=== PATIENT | male | born 1960 | race Two or more races ===

== ENCOUNTER 2022-08-05 20:34 | Inpatient (IN) ==
--- NOTE | 2022-08-05 21:31 | Emergency Department Note ---
Impression & Plan Nephrolithiasis, Back pain ED Provider Note CHIEF COMPLAINT: Low back pain HISTORY OF PRESENT ILLNESS: This 62-year-old male patient presents to the emergency department with his complaining of pain in the low back mostly on the left side into his groin which began yesterday. The patient states that he has been working in the yard a lot recently and now has "severe" low back pain. The pain was gradual in onset, is now constant and worse with movement. He states that he gets severe sharp episodes of pain and then it lets up slightly and then come back again. Has also been feeling like he has to have a BM, but can't go. Last BM was this morning. The patient notes the pain as sharp and a 10/10. He has a history of kidney stones, but this feels different. The patient has taken Tylenol without relief of the pain. The patient denies any loss of control of their bowel or bladder functions. No radiation of the pain into his legs. There has been no leg numbness or weakness, and no change in sensation. No nausea or vomiting or abdominal pain. No chest pain or shortness of breath. The patient has a history of L4/L5 surgery many years ago. No dysuria or increased urinary frequency. Walking helps a little with the pain, but not much. REVIEW OF SYSTEMS: A review of systems was performed with positives and pertinent negatives listed in the history of present illness. ALLERGIES: Morphine - vomiting MEDICATIONS: None PMH: Denies chronic medical problems. History of back surgery. History of partial colon resection. PHYSICAL EXAM: VITALS: Vitals are noted on the nurse's note and reviewed by myself. GENERAL: The patient is pacing and appears in pain, but non toxic in appearance and in no acute distress. Non-diaphoretic. EYES: Pupils equal round and reactive to light and accommodation. The Extraocular movements intact. NECK: Supple without nuchal rigidity. No cervical spine tenderness. No paraspinous muscle tenderness. No lymphadenopathy. HEART: Regular rate and rhythm without murmurs gallops or rubs. LUNGS: Clear to auscultation bilaterally without wheezes, rales or rhonchi. ABDOMEN: Positive bowel sounds x 4. Normal tympanic percussion. Soft, left flank tenderness, without masses or organomegaly. No CVA tenderness. Asif sign negative. MUSCULOSKELETAL: No muscle atrophy, erythema, or edema noted of the back. There is tenderness over the lumbar spinous processes. There is also tenderness over the paraspinous muscles on the left side. There is no tenderness over the thoracic spine or paraspinous muscles. There are no muscle spasms present. Negative straight leg raise test. NEURO: Patient was alert and oriented to person place and time. Normal sensation to light and sharp touch. Deep tendon reflexes 2+ in the lower extremities. Dorsalis pedis pulse 2+ bilaterally. Heel and toe walking is normal. DIFFERENTIAL DIAGNOSIS: Differential diagnosis includes lumbar strain/sprain, muscle spasm, disc herniation, fracture, subluxation, metastatic disease, cord compression, discitis, sciatica, cauda equina, conus medullaris syndrome, infection, epidural abscess, epidural hematoma, aortic disease, renal colic, kidney stone, UTI, pyelonephritis, gastrointestinal, as well as other pathologies. EMERGENCY DEPARTMENT COURSE: I examined the patient. He was given Toradol 15 mg IM initially for the pain. His urinalysis came back with 3+ blood, but no evidence for infection and additional work-up was initiated as the patient was now pacing around the room appearing like he may have a kidney stone. An IV lock was placed and labs were drawn. He was given 1 L normal saline solution bolus. He was then given fentanyl 100 mcg IV as well as Zofran 4 mg IV. White blood cell count elevated at 14.07 with normal hemoglobin at 14.6. Glucose elevated at 127, but CMP otherwise unremarkable. Urinalysis with 3+ blood, but no evidence for UTI. COVID-negative. CT scan of the lumbar spine was reviewed by myself and read by radiology as below and shows multilevel degenerative change in the lower lumbar spine as well as postsurgical change. No evidence for canal stenosis. CT scan of the abdomen pelvis without contrast was reviewed by myself and read by radiology as below and shows a 7 mm distal ureteral calculus at the left UVJ with mild to moderate left-sided hydroureteronephrosis. There are also additional bilateral intrarenal calculi as well as a 6.87 m simple left renal cyst. The patient was then given oral Flomax as well as an additional fentanyl 50 mcg IV followed by fentanyl 100 mcg IV for continued pain. The patient did have mild hypoxia down to about 87 to 88% right after pain medication administration, but does improve quickly with O2 by nasal cannula and resolved shortly after the pain medication is given. The patient does not feel like he can go home with the pain that he is currently experiencing. I spoke with the on-call hospitalist, Dr. Andres, who recommended I contact urology since the patient has no past medical history and is not currently on any medications. I spoke with Dr. Espinal of urology who stated that they do not admit to their service. He recommended the patient receive Rocephin IV and that they can consult on the patient while he was admitted. I spoke with Dr. Andres again regarding the recommendations from urology. The patient was admitted by Dr. Andres. Please refer to her dictation for further details. The patient was admitted in stable condition. DIAGNOSIS: 7 mm left distal ureteral calculus at the UVJ with mild to moderate left-sided hydroureteronephrosis Past Med/Surg History Medical History (Updated 08/06/22 @ 07:33 by Coreen Schreiber PA-C) Nephrolithiasis Surgical History (Updated 08/06/22 @ 03:08 by Valentina Jerez DO) Previous back surgery Family History (Updated 08/06/22 @ 02:59 by Valentina Jerez DO) Other No pertinent family history Social History Smoking Status: Never smoker Second Hand Exposure: No; Do You Dip or Chew Tobacco: No; Tobacco Cessation Education Requested by Patient: No Hx Alcohol Use: No Hx Substance Use: No Preferred Language: Angolan Communication Ability: Effective Aircre[employer] Required: No Beliefs That Will Affect Care: None Current Living Situation: Spouse Other Information That Helps Us Care for You: No Feels Safe at Home: Yes Safety Concerns: Feels Safe At This Time Assistive Devices: Denture - Upper Allergies Allergies Allergy/AdvReac Type Severity Reaction Status Date / Time morphine AdvReac Vomiting Verified 08/05/22 23:40 Home Meds Home Medications Medication Instructions Recorded Confirmed acetaminophen 500 mg tablet 1,000 mg PO Q6H PRN Pain 08/05/22 08/05/22 (Tylenol Extra Strength) loratadine 10 mg tablet (Claritin) 10 mg PO DAILY PRN allergies 08/05/22 08/05/22 tetrahydrozoline 0.05 % eye drops 1 drp ophthalmic (eye) QID PRN Dry 08/05/22 08/05/22 (Visine) Eyes Results & Data (ED) Vital Signs Vital Signs - 24 hr 08/05/22 20:35 Temperature 36.6 C Temperature Source Temporal Artery Scan Pulse Rate 77 Pulse Rhythm Regular Pulse Strength Normal Respiratory Rate 20 Respiratory Effort / Characteristics Non-Labored Spontaneous Respiratory Depth Normal Respiratory Pattern Regular Blood Pressure 171/89 H Blood Pressure Mean 116 Blood Pressure Position Sitting Pulse Oximetry 93 Oxygen Delivery Method Room Air Sepsis Recent Fever Within 48 Hours No Sepsis New/Unexplained Change in Mental Status N/A Sepsis Action Taken by Nursing No Action Required Laboratory Data 08/05/22 22:34 08/05/22 22:34 Lab Results 08/05/22 08/05/22 08/05/22 Range/Units 21:50 22:34 22:34 WBC 14.07 H (4.8-10.8) K/ul RBC 5.09 (4.70-6.10) M/uL Hgb 14.6 (14.0-18.0) g/dl Hct 42.7 (42.0-52.0) % MCV 83.9 (80.0-100.0) fL MCH 28.7 (25.0-34.0) pg MCHC 34.2 (32.0-36.0) g/dL RDW Std Deviation 40.9 (36.4-46.3) fL RDW Coeff of Kb 13.2 (11.5-14.5) % Plt Count 207 (130-400) K/uL MPV 11.2 (9.4-12.4) fL Immature Gran % (Auto) 0.4 % Neut % (Auto) 84.3 % Lymph % (Auto) 8.2 % [place] % (Auto) 5.7 % Eos % (Auto) 1.1 % Baso % (Auto) 0.3 % Neut # (Auto) 11.88 H (1.40-6.50) K/uL Lymph # (Auto) 1.15 L (1.2-3.4) K/uL [place] # (Auto) 0.80 H (0.11-0.59) K/uL Eos # (Auto) 0.15 (0-0.50) K/uL Baso # (Auto) 0.04 (0-0.2) K/uL Immature Gran # (Auto) 0.05 (0.01-0.20) K/uL Sodium 140 (136-145) mmol/L Potassium 3.9 (3.5-5.1) mmol/L Chloride 108 H (98-107) mmol/L Carbon Dioxide 25 (21-32) mmol/L Anion Gap 7 (3-11) BUN 18 (6-23) mg/dl Creatinine 1.28 (0.6-1.4) mg/dl Est Cr Clr Drug Dosing 81.4 ml/min Est GFR ( Amer) 68.1 ml/min Est GFR (Non-Af Amer) 58.8 ml/min BUN/Creatinine Ratio 14.1 (10-20) Glucose 127 H (70-99(Fasting)) mg/dl Calcium 9.0 (8.6-10.3) mg/dl Total Bilirubin 0.7 (0.2-1.0) mg/dl AST 26 (13-39) U/L ALT 28 (7-52) U/L Alkaline Phosphatase 79 (34-104) U/L Total Protein 7.4 (6.0-8.3) gm/dl Albumin 4.1 (3.4-5.0) gm/dl Globulin 3.3 (2.5-4.0) gm/dl Albumin/Globulin Ratio 1.2 (0.9-2) Urine Color Yellow Urine Appearance Clear (Clear) Urine pH 5.0 (4.5-7.5) Ur Specific [place] 1.020 (1.000-1.030) Urine Protein Negative (Negative) Urine Glucose (UA) Negative (Negative) Urine Ketones Negative (Negative) Urine Blood 3+ H (Negative) Urine Nitrite Negative (Negative) Urine Bilirubin Negative (Negative) Urine Urobilinogen Negative (Negative) Ur Leukocyte Esterase Negative (Negative) Urine WBC (Auto) 1-5 (0-5) /hpf Urine RBC (Auto) 5-10 H (0-4) /hpf U Hyaline Cast (Auto) 1-5 (0-5) /lpf U Epithel Cells (Auto) 10-20 H (0-5) /lpf Urine Bacteria (Auto) Negative (Negative) SARS-CoV-2, RNA, NAAT (NEGATIVE) 08/06/22 Range/Units 01:04 WBC (4.8-10.8) K/ul RBC (4.70-6.10) M/uL Hgb (14.0-18.0) g/dl Hct (42.0-52.0) % MCV (80.0-100.0) fL MCH (25.0-34.0) pg MCHC (32.0-36.0) g/dL RDW Std Deviation (36.4-46.3) fL RDW Coeff of Kb (11.5-14.5) % Plt Count (130-400) K/uL MPV (9.4-12.4) fL Immature Gran % (Auto) % Neut % (Auto) % Lymph % (Auto) % [place] % (Auto) % Eos % (Auto) % Baso % (Auto) % Neut # (Auto) (1.40-6.50) K/uL Lymph # (Auto) (1.2-3.4) K/uL [place] # (Auto) (0.11-0.59) K/uL Eos # (Auto) (0-0.50) K/uL Baso # (Auto) (0-0.2) K/uL Immature Gran # (Auto) (0.01-0.20) K/uL Sodium (136-145) mmol/L Potassium (3.5-5.1) mmol/L Chloride (98-107) mmol/L Carbon Dioxide (21-32) mmol/L Anion Gap (3-11) BUN (6-23) mg/dl Creatinine (0.6-1.4) mg/dl Est Cr Clr Drug Dosing ml/min Est GFR ( Amer) ml/min Est GFR (Non-Af Amer) ml/min BUN/Creatinine Ratio (10-20) Glucose (70-99(Fasting)) mg/dl Calcium (8.6-10.3) mg/dl Total Bilirubin (0.2-1.0) mg/dl AST (13-39) U/L ALT (7-52) U/L Alkaline Phosphatase (34-104) U/L Total Protein (6.0-8.3) gm/dl Albumin (3.4-5.0) gm/dl Globulin (2.5-4.0) gm/dl Albumin/Globulin Ratio (0.9-2) Urine Color Urine Appearance (Clear) Urine pH (4.5-7.5) Ur Specific [place] (1.000-1.030) Urine Protein (Negative) Urine Glucose (UA) (Negative) Urine Ketones (Negative) Urine Blood (Negative) Urine Nitrite (Negative) Urine Bilirubin (Negative) Urine Urobilinogen (Negative) Ur Leukocyte Esterase (Negative) Urine WBC (Auto) (0-5) /hpf Urine RBC (Auto) (0-4) /hpf U Hyaline Cast (Auto) (0-5) /lpf U Epithel Cells (Auto) (0-5) /lpf Urine Bacteria (Auto) (Negative) SARS-CoV-2, RNA, NAAT NEGATIVE (NEGATIVE) Administered Medications Sodium Chloride (Nss 1000ml) 1,000 mls @ 125 mls/hr IV .Q8H MUNA Stop: 09/05/22 04:18 Last Admin: 08/06/22 04:54 Dose: 125 mls/hr Documented By: TOMER Acetaminophen (Ofirmev) 1,000 mg in 100 mls @ 400 mls/hr IV Q8 MUNA Stop: 08/09/22 04:44 Last Infusion: 08/06/22 05:35 Dose: 0 mls/hr Documented By: Admin: 08/06/22 05:20 Dose: 400 mls/hr Documented By: TARUN Discontinued Medications Fentanyl Citrate (Fentanyl Citrate Pf 100 Mcg/2 Ml Vial) 100 mcg IV NOW STA Stop: 08/05/22 23:36 Last Admin: 08/05/22 23:45 Dose: 100 mcg Documented By: KATERIN Fentanyl Citrate (Fentanyl Citrate Pf 100 Mcg/2 Ml Vial) 50 mcg IV NOW STA Stop: 08/06/22 00:36 Last Admin: 08/06/22 00:50 Dose: 50 mcg Documented By: KATERIN Fentanyl Citrate (Fentanyl Citrate Pf 100 Mcg/2 Ml Vial) 100 mcg IV NOW STA Stop: 08/06/22 01:33 Last Admin: 08/06/22 01:53 Dose: 100 mcg Documented By: KATERIN Hydromorphone HCl (Hydromorphone Inj 1 Mg/Ml Syringe) 1 mg IV NOW STA Stop: 08/06/22 02:58 Last Admin: 08/06/22 03:18 Dose: 1 mg Documented By: KRISTINA Sodium Chloride (Nss 1000ml) 1,000 mls @ 999 mls/hr IV .Q1H1M ONE Stop: 08/05/22 23:25 Last Infusion: 08/05/22 23:30 Dose: 0 mls/hr Documented By: Admin: 08/05/22 22:35 Dose: 999 mls/hr Documented By: KATERIN Ceftriaxone Sodium (Rocephin) 2,000 mg in 70 mls @ 140 mls/hr IV NOW STA Stop: 08/06/22 02:41 Last Infusion: 08/06/22 03:17 Dose: 0 mls/hr Documented By: Admin: 08/06/22 02:43 Dose: 140 mls/hr Documented By: KATERIN Ketorolac Tromethamine (Ketorolac Tromethamine 15 Mg/Ml Vial) 15 mg IM NOW STA Stop: 08/05/22 21:40 Last Admin: 08/05/22 21:52 Dose: 15 mg Documented By: KATERIN Ketorolac Tromethamine (Ketorolac Tromethamine 15 Mg/Ml Vial) 15 mg IV NOW STA Stop: 08/06/22 02:59 Last Admin: 08/06/22 03:18 Dose: 15 mg Documented By: KRISTINA Ondansetron HCl (Ondansetron Inj 2 Mg/Ml 2 Ml Vial) 4 mg IV NOW STA Stop: 08/05/22 23:53 Last Admin: 08/06/22 00:17 Dose: 4 mg Documented By: KATERIN Tamsulosin HCl (Tamsulosin Hcl 0.4 Mg Cap) 0.4 mg PO NOW ONE Stop: 08/05/22 23:37 Last Admin: 08/05/22 23:46 Dose: 0.4 mg Documented By: KATERIN Imaging Data Radiologist's Impression: Abdomen/Pelvis CT 08/05/22 21:39 Exam(s): CT ABDOMEN + PELVIS Without Contrast EXAM: CT Abdomen and Pelvis Without Intravenous Contrast CLINICAL HISTORY: Reason for exam: Left flank pain - Eval stone. TECHNIQUE: Axial computed tomography images of the abdomen and pelvis without intravenous contrast. CTDI is 21 mGy and DLP is 1167.65 mGy-cm. Automated exposure control was utilized for the study. A dose lowering technique was utilized adhering to the principles of ALARA. COMPARISON: No relevant prior studies available. FINDINGS: Lung bases: Unremarkable. No mass. No consolidation. ABDOMEN: Liver: Unremarkable. Gallbladder and bile ducts: There is cholelithiasis within an otherwise normal gallbladder. No ductal dilation. Pancreas: Unremarkable. No ductal dilation. Spleen: Unremarkable. No splenomegaly. Adrenals: Unremarkable. No mass. Kidneys and ureters: There is mild to moderate left hydroureteronephrosis extending to a 7 mm distal ureteral calculus (image 85 series 2). There are additional bilateral intrarenal calculi. There is a 6.8 cm simple left renal cyst. Stomach and bowel: Left lower quadrant colonic anastomosis. No obstruction. No mucosal thickening. PELVIS: Appendix: No findings to suggest acute appendicitis. Bladder: Unremarkable. No stones. Reproductive: Unremarkable as visualized. ABDOMEN and PELVIS: Intraperitoneal space: Unremarkable. No free air. No significant fluid collection. Bones/joints: Surgical hardware in the lower lumbar spine. To level degenerative changes of the spine. No acute fracture. No dislocation. Soft tissues: Unremarkable. Vasculature: There is diffuse atherosclerotic calcification of the aorta and its major branch vessels. No abdominal aortic aneurysm. Lymph nodes: Unremarkable. No enlarged lymph nodes. IMPRESSION: Mild to moderate left-sided hydroureteronephrosis related to a large calculus at the left UVJ. Electronically signed by: Aram Pryro MD 08/05/22 23:[address] 08/05/22 21:39 Exam(s): CT L SPINE EXAM: CT Lumbar Spine Without Intravenous Contrast CLINICAL HISTORY: Reason for exam: Low back pain. TECHNIQUE: Axial computed tomography images of the lumbar spine without intravenous contrast. CTDI is 21 mGy and DLP is 1167.65 mGy-cm. Automated exposure control was utilized for the study. A dose lowering technique was utilized adhering to the principles of ALARA. COMPARISON: No relevant prior studies available. FINDINGS: Vertebrae: There is slight retrolisthesis of L4 and L5. Discs/spinal canal/neural foramina: Status post posterior fusion and laminectomy at L5-S1. There are mild multilevel degenerative changes including small disc bulges. No significant canal stenosis. Soft tissues: Please see the dedicated interpretation of the abdomen and pelvis.. IMPRESSION: Multilevel degenerative change in lower lumbar is postsurgical change. No evidence for canal stenosis. If concern persists, MRI would provide more sensitive evaluation. Electronically signed by: Aram Pryor MD 08/05/22 23:13 PM Discharge Plan Visit Data Chief Complaint: Back Injury/Pain Stated Complaint: BACK PAIN ED Provider: Marta Curtis ED Midlevel Provider: Coreen Schreiber Discharge Problem: Nephrolithiasis, Back pain Patient Disposition: Admitted As Inpatient Condition: Good Discharge Instructions Interventions: ED Discharge Assessment Last Done: 08/06/22 03:58
[2022-08-05] MEDS ORDERED: KETOROLAC TROMETHAMINE 15 MG/ML VIAL IM STA (21:39)
[2022-08-05 22:15] LABS: Appearance Urine Clear (Clear); Bacteria Urine Automated Negative (Negative); Bilirubin Urine Negative (Negative); Blood Urine 3+ (Negative); Color Urine Yellow; Glucose Urine UA Negative (Negative); Ketones Urine Negative (Negative); Leukocyte Esterase Urine Negative (Negative); Nitrite Urine Negative (Negative); Protein Urine Negative (Negative); Urobilinogen Urine Negative (Negative)
[2022-08-05] MEDS ORDERED: SODIUM CHLORIDE 0.9% 1000ML 1,000 ML IV ONE (22:25)
[2022-08-05 22:49] LABS: Basophils # (auto) 0.04 K/uL (0-0.2); Basophils % (auto) 0.3 %; Eosinophils # (auto) 0.15 K/uL (0-0.50); Eosinophils % (auto) 1.1 %; Hematocrit (blood only) 42.7 % (42.0-52.0); Hemoglobin 14.6 g/dl (14.0-18.0); Immature Granulocytes # (auto) 0.05 K/uL (0.01-0.20); Immature Granulocytes % (auto) 0.4 %; Lymphocytes # (auto) 1.15 K/uL (1.2-3.4); Lymphocytes % (auto) 8.2 %; Mean Corpuscular Hemoglobin 28.7 pg (25.0-34.0); Mean Corpuscular Hgb Conc 34.2 g/dL (32.0-36.0); Mean Corpuscular Volume 83.9 fL (80.0-100.0); Mean Platelet Volume 11.2 fL (9.4-12.4); Monocytes % (auto) 5.7 %; Neutrophils # (auto) 11.88 K/uL (1.40-6.50); Neutrophils % (auto) 84.3 %; Platelet Count 207 K/uL (130-400); RDW Coefficient of Variation 13.2 % (11.5-14.5); RDW Standard Deviation 40.9 fL (36.4-46.3); Red Blood Count 5.09 M/uL (4.70-6.10); White Blood Count 14.07 K/ul (4.8-10.8)
[2022-08-05 23:09] LABS: Albumin Globulin Ratio 1.2 (0.9-2); Albumin Level 4.1 gm/dl (3.4-5.0); BUN Creatinine Ratio 14.1 (10-20); Bilirubin,Total 0.7 mg/dl (0.2-1.0); Creatinine Clr Calc Pharmacy 81.4 ml/min; Est GFR (African American) 68.1 ml/min; Est GFR (Non-African American) 58.8 ml/min; Globulin 3.3 gm/dl (2.5-4.0); Potassium 3.9 mmol/L (3.5-5.1); Total Protein 7.4 gm/dl (6.0-8.3)
--- NOTE | 2022-08-05 23:12 | CT Scan Report ---
Exam(s): CT ABDOMEN + PELVIS Without Contrast EXAM: CT Abdomen and Pelvis Without Intravenous Contrast CLINICAL HISTORY: Reason for exam: Left flank pain - Eval stone. TECHNIQUE: Axial computed tomography images of the abdomen and pelvis without intravenous contrast. CTDI is 21 mGy and DLP is 1167.65 mGy-cm. Automated exposure control was utilized for the study. A dose lowering technique was utilized adhering to the principles of ALARA. COMPARISON: No relevant prior studies available. FINDINGS: Lung bases: Unremarkable. No mass. No consolidation. ABDOMEN: Liver: Unremarkable. Gallbladder and bile ducts: There is cholelithiasis within an otherwise normal gallbladder. No ductal dilation. Pancreas: Unremarkable. No ductal dilation. Spleen: Unremarkable. No splenomegaly. Adrenals: Unremarkable. No mass. Kidneys and ureters: There is mild to moderate left hydroureteronephrosis extending to a 7 mm distal ureteral calculus (image 85 series 2). There are additional bilateral intrarenal calculi. There is a 6.8 cm simple left renal cyst. Stomach and bowel: Left lower quadrant colonic anastomosis. No obstruction. No mucosal thickening. PELVIS: Appendix: No findings to suggest acute appendicitis. Bladder: Unremarkable. No stones. Reproductive: Unremarkable as visualized. ABDOMEN and PELVIS: Intraperitoneal space: Unremarkable. No free air. No significant fluid collection. Bones/joints: Surgical hardware in the lower lumbar spine. To level degenerative changes of the spine. No acute fracture. No dislocation. Soft tissues: Unremarkable. Vasculature: There is diffuse atherosclerotic calcification of the aorta and its major branch vessels. No abdominal aortic aneurysm. Lymph nodes: Unremarkable. No enlarged lymph nodes. IMPRESSION: Mild to moderate left-sided hydroureteronephrosis related to a large calculus at the left UVJ. Electronically signed by: Aram Pryor MD 08/05/22 23:11 PM
--- NOTE | 2022-08-05 23:14 | CT Scan Report ---
Exam(s): CT L SPINE EXAM: CT Lumbar Spine Without Intravenous Contrast CLINICAL HISTORY: Reason for exam: Low back pain. TECHNIQUE: Axial computed tomography images of the lumbar spine without intravenous contrast. CTDI is 21 mGy and DLP is 1167.65 mGy-cm. Automated exposure control was utilized for the study. A dose lowering technique was utilized adhering to the principles of ALARA. COMPARISON: No relevant prior studies available. FINDINGS: Vertebrae: There is slight retrolisthesis of L4 and L5. Discs/spinal canal/neural foramina: Status post posterior fusion and laminectomy at L5-S1. There are mild multilevel degenerative changes including small disc bulges. No significant canal stenosis. Soft tissues: Please see the dedicated interpretation of the abdomen and pelvis.. IMPRESSION: Multilevel degenerative change in lower lumbar is postsurgical change. No evidence for canal stenosis. If concern persists, MRI would provide more sensitive evaluation. Electronically signed by: Aram Pryor MD 08/05/22 23:13 PM
[2022-08-05] MEDS ORDERED: fentaNYL citrate PF 100 MCG/2 ML VIAL IV STA (23:35)
[2022-08-05] MEDS ORDERED: TAMSULOSIN HCL 0.4 MG CAP PO ONE (23:36)
[2022-08-05] MEDS ORDERED: ONDANSETRON INJ 2 MG/ML 2 ML VIAL IV STA (23:52)
[2022-08-06] MEDS ORDERED: fentaNYL citrate PF 100 MCG/2 ML VIAL IV STA ×2 (00:35→01:32)
[2022-08-06] MEDS ORDERED: cefTRIAXone SODIUM 2,000 MG/70 ML BAG IV STA (02:12)
--- NOTE | 2022-08-06 02:48 | History & Physical Report ---
Date of Service August 06, 2022 Assessment & Plan (1) Nephrolithiasis: Plan: History of nephrolithiasis With worsening back pain over the last 24 hours CTAP with mild to moderate left-sided hydroureteronephrosis related to a large 7mm calculus at the left UVJ Case discussed with Urology by ER provider; to see patient later this AM Recommended ceftriaxone at this time for possible infected stone Dilaudid 1mg q2h prn severe pain; scheduled ketorolac and Tylenol IV, warm compresses as patient desires Continue tamsulosin, strain urine NPO except tamsulosin with IVF until evaluated by Urology (2) Leukocytosis: Plan: WBC count 14 with left shift, UA without bacteria however given obstructing stone continue ceftriaxone 2g daily for now until formal UCx results Daily CBC while admitted (3) Previous back surgery: Plan: Patient with a history of back surgery, however do suspect his pain is due to his UVJ stone as opposed to any lumbar pathology. CT of the L-spine with degenerative and postsurgical changes, but no acute findings. No bowel or bladder incontinence History of Present Illness Chief Complaint: back pain Primary Care Provider: NO PCP 62-year-old male past medical history significant for nephrolithiasis presented to the ER for worsening low back pain isolated more so to the left side over the last 24 hours. At first thought that the pain might be musculoskeletal due to a history of back surgery (L4/5 surgery many years ago). Does not endorse dysuria or increased urinary frequency, no bowel or bladder incontinence has been trying to take Tylenol at home without relief. Reports some nausea when he has to move, but no nausea when he is staying still. Quantifies pain as a 10 out of 10, alleviated some with walking. In the ER patient noted to be hemodynamically stable with a blood pressure in the 170s systolic, saturating well on room air. Lab work notable for WBC count of 14.07 with a neutrophilic predominance, creatinine 1.28 without baseline to compare, urinalysis with 3+ blood but negative for bacteria, COVID-[address] abdomen and pelvis with evidence of mild to moderate hydroureteronephrosis secondary to large UVJ stone. CT of lumbar spine with multilevel degenerative disease and postsurgical changes, but no evidence of canal stenosis. Hospitalist service was consulted for evaluation and management of his obstructive stone with urology consult. Allergies Allergy/AdvReac Type Severity Reaction Status Date / Time morphine AdvReac Vomiting Verified 08/05/22 23:40 Home Medications Medication Instructions Recorded Confirmed Type acetaminophen 500 mg tablet 1,000 mg PO Q6H PRN Pain 08/05/22 08/05/22 History (Tylenol Extra Strength) loratadine 10 mg tablet (Claritin) 10 mg PO DAILY PRN allergies 08/05/22 08/05/22 History tetrahydrozoline 0.05 % eye drops 1 drp ophthalmic (eye) QID PRN Dry 08/05/22 08/05/22 History (Visine) Eyes Past Med/Surg History Medical History (Updated 08/06/22 @ 02:58 by Valentina Jerez DO) Nephrolithiasis Surgical History (Updated 08/06/22 @ 03:08 by Valentina Jerez DO) Previous back surgery Family History (Updated 08/06/22 @ 02:59 by Valentina Jerez DO) Other No pertinent family history Social History Smoking Status: Never smoker Preferred Language: Occitan Feels Safe at Home: Yes Review of Systems Review of Systems: All systems reviewed & are unremarkable except as noted in Subjective Physical Exam Constitutional: well developed, obese, in pain Respiratory: normal respiratory effort, lungs clear to auscultation Cardiovascular: RRR, no murmur, no edema Gastrointestinal (Abdomen): normal bowel sounds, soft, nontender, no hepatosplenomegaly left low back very tender to palpation Skin: no rashes, warm and dry Psychiatric: alert and oriented Results & Data Results & Data Vital Signs (Past 12 Hours) Vital Signs Temp Pulse Resp BP Pulse Ox O2 Del Method 08/05/22 20:35 36.6 C 77 20 171/89 H 93 Room Air PG Care Time/CCT Total # of Minutes Spent Total Time Spent with Patient: Total time spent is greater than 50% in coordination of care (as documented) at patient's floor/unit and/or counseling patient: Coding Level of Care Code 73659 INT INP/OBS CARE 3/75MIN Diagnoses Nephrolithiasis N20.0 Leukocytosis D72.829 Previous back surgery Z98.890
[2022-08-06] MEDS ORDERED: HYDROmorphone INJ 1 MG/ML SYRINGE IV STA (02:57)
[2022-08-06] MEDS ORDERED: KETOROLAC TROMETHAMINE 15 MG/ML VIAL IV STA (02:58)
[2022-08-06] MEDS ORDERED: HYDROmorphone INJ 1 MG/ML SYRINGE IV PRN (04:19)
[2022-08-06] MEDS: SODIUM CHLORIDE 0.9% 1000ML 1,000 ML IV SCH ×3 (04:54→20:55)
[2022-08-06] MEDS: ACETAMINOPHEN 1,000 MG/100 ML VIAL IV SCH ×3 (05:20→21:41)
--- NOTE | 2022-08-06 07:00 | Hospitalist Progress Note ---
Date of Service August 06, 2022 Assessment & Plan (1) Nephrolithiasis: Plan: 62-year-old male with past medical history of right-sided kidney stone that required cystoscopy removal over 15 years ago who presents with 24 hours of intractable left groin and left low back pain. - CT abdomen/pelvis with mild to moderate left-sided hydroureteronephrosis related to a large 7mm calculus at the left UVJ. - Urology recommends conservative management - Continue Rocephin 2 g IV every 24 for now while awaiting stone passage - UA was negative, culture was not sent - Continue daily tamsulosin, strain urine - Pain control with scheduled Tylenol 1000 mg IV every 8 hours. Reduced prn Dilaudid to 0.5 mg q2h - NSS 125 mL/hr (2) Elevated serum creatinine: Plan: - Creatinine 1.28, baseline unknown. Discontinued Toradol. Avoid nsaids. Follow BMP. (3) Previous back surgery: Plan: - History of L4/L5 back surgery many years ago. CT of the L-spine with degenerative and postsurgical changes, but no acute findings. No bowel or bladder incontinence. (4) Leukocytosis: Plan: Follow CBC. Plan FEN/GI: regular diet. NPO at midnight. NSS 125mL/hr dvt ppx: SCDs only code: full dispo: med surg Admission and Anticipated Discharge Date Admission Date: August 06, 2022 Supervising Physician Co-Signing Physician Notes I also saw the patient and confirmed hernandez portions of the history and physical examination. I agree with the impression and plan as noted in the resident documentation. Upon our midmorning exam, the patient feeling better, pain controlled. EXAM 141/67, 62, 18, 36.7, 96% on room air Respirations are non-labored, lungs are clear Heart regular rate and rhythm DATA Xquoxriosj77.6, WBC 14.07 Sodium 140, potassium 3.9, BUN 18, creatinine 1.28 Urinalysis shows 3+ blood CT scan of the abdomen and pelvis dated 08/05/2022 shows a 7 mm distal ureteral calculus with resulting mild to moderate left-sided hydro utero nephrosis. Note is also made of additional bilateral intra renal calculi. There is also a 6.8 cm simple left renal cyst. IMPRESSION AND PLAN Nephrolithiasis with obstruction Urology consult appreciated Continue pain control, Flomax, IV hydration Ambulate in the hallway ad elliot. Diet as tolerated, will make n.p.o. after midnight in case intervention needed Additional per resident documentation Subjective Patient's current pain level is 2 out of 10, much improved from last night. He states that he has had severe left flank and left groin pain since 2 days ago. He denies fever, chills, gross hematuria. He has had a history of right-sided kidney stones and states he has had cystoscopy stone removal in the past. 11AM update: Pain continues to be minimal/controlled. Last dose of 1mg Dilaudid IV at 3AM. Review of Systems Review of Systems: All systems reviewed & are unremarkable except as noted in HPI & below Physical Exam Physical Exam: General: Grossly A&O. NAD. Cooperative. HEENT: Atraumatic, normocephalic. Pulm: CTAB. -wheezes, -rales, -rhonchi. No respiratory distress. Cardiac: RRR, -mrg. Abdominal: Nontender in all 4 quadrants, nondistended, soft. Back: No left CVA ttp. Results & Data Results & Data Vital Signs (Past 12 Hours) Vital Signs Temp Pulse Pulse Resp BP BP Pulse Ox 08/06/22 04:15 08/06/22 04:15 08/06/22 04:15 36.6 C 62 20 202/100 H 97 08/06/22 04:19 62 16 167/90 H 95 08/06/22 04:00 62 16 165/99 H 95 08/06/22 03:58 08/06/22 03:23 63 18 187/101 H 96 08/05/22 20:35 36.6 C 77 20 171/89 H 93 O2 Del Method O2 Flow Rate 08/06/22 04:15 Nasal Cannula 2 08/06/22 04:15 Nasal Cannula 2 08/06/22 04:15 Nasal Cannula 2 08/06/22 04:19 Nasal Cannula 2 08/06/22 04:00 Room Air 08/06/22 03:58 Nasal Cannula 2 08/06/22 03:23 Nasal Cannula 2 08/05/22 20:35 Room Air Resident Activity Tracking Resident Involvement: Resident Care Provided Care Provided: Adult [facility] Medicine
[2022-08-06] MEDS ORDERED: HYDROmorphone INJ 0.5 MG/0.5 ML SYR IV PRN (07:10)
[2022-08-06] MEDS ORDERED: KETOROLAC TROMETHAMINE 15 MG/ML VIAL IV SCH (07:15)
[2022-08-06] MEDS: TAMSULOSIN HCL 0.4 MG CAP PO SCH (08:31)
--- NOTE | 2022-08-06 09:15 | Urology Consultation ---
Date of Consultation August 06, 2022 Assessment & Plan (1) Nephrolithiasis: (2) Back pain: (3) Leukocytosis: Plan New patient admitted for incomplete pain control. Patient has obstructing stone with significant discomfort and pain. Has attempted to pass. Had undergone IV hydration as well as attempted management with narcotics overnight. Was admitted to the hospitalist team for intractable pain. Patient is not febrile has not had a considerable PANDA or signs of developing s epsis or major severe episode. Pain has not been well controlled. Reviewed extensively obstructing stone. Discussed possibility of passage. Discussed concerns and issues. No signs of severe sepsis PANDA or major injury or other issue that would warrant emergent intervention. Agree with plans for supportive care with IV hydration and pain control medication as needed. Patient is currently started on IV antibiotics for presumed infection. Does have a white count. Labs had all been reviewed. Current white count is 14.07. Creatinine 1.28. COVID test was negative. All imaging have been reviewed interpreted by myself. Does have obstructing stone. Vitals have all been stable with only mild hypertension. Plan for maximum expulsion therapy with the utilization of medication such as Fl omax, Toradol, pain medication, and aggressive hydration. Patient has a 7 mm distal stone which would have a good chance of passage with time and adequate pain control and management. Did discuss possible options for intervention however at this point no major indication for emergent intervention. Very reasonable option to continue with supportive care with plans for elective intervention if patient fails spontaneous passage. Patient complicated medical and surgical history is reviewed and summarized above all imaging have been reviewed interpreted by myself. All labs as above with pertinent values in the HPI and plan section. Patient has already started to feel considerably better. He has noticed a drastic decrease in pain and nausea. Is interested in having some food at this point we will plan for continued supportive care. Patient has a history of stones with 2 in the past that the first 1 had to undergo intervention but was able to pass the second 1. Had previously been seen in [facility]. This had been close to 15 years ago since he has had a stone. We will plan for observation History of Present Illness Attending Physician: lEena Benites MD History of Present Illness New consultation for patient with stone, discomfort, obstruction, and ill feelings. Patient developed sudden onset of pain into flank going down and radiating into groin and back in waves comes and goes. Can be severe at times. Discussed and reviewed patient's family history for any history of stone disease. Also, discussed patient's medical surgery history especially related to any history of urinary issues or stone disease. Patient was admitted and is undergoing observation. Allergies Allergy/AdvReac Type Severity Reaction Status Date / Time morphine AdvReac Vomiting Verified 08/05/22 23:40 Home Medications Medication Instructions Recorded Confirmed Type acetaminophen 500 mg tablet 1,000 mg PO Q6H PRN Pain 08/05/22 08/05/22 History (Tylenol Extra Strength) loratadine 10 mg tablet (Claritin) 10 mg PO DAILY PRN allergies 08/05/22 08/05/22 History tetrahydrozoline 0.05 % eye drops 1 drp ophthalmic (eye) QID PRN Dry 08/05/22 08/05/22 History (Visine) Eyes Patient History Medical History Nephrolithiasis Surgical History Previous back surgery Family History Other No pertinent family history Social History Smoking Status: Never smoker Second Hand Exposure: No; Do You Dip or Chew Tobacco: No; Tobacco Cessation Education Requested by Patient: No Hx Alcohol Use: No Hx Substance Use: No Preferred Language: Mauritanian Communication Ability: Effective 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 Having pain with stone. HEENT: Normocephalic Atraumatic. Inspection normal. Cranial Nerves 2-12 Grossly intact. Nares are clear. Neck is supple. Normal inspection of face. Normal inspection of neck. Neurologic: No deficits on inspection. Baseline for motor function and sensory. Psychologic: Normal affect. Respiratory: Nonlabored. No use of accessory muscles. No tachypnea or dyspnea. Cardiovascular: No tachycardia Skin: [place] and Dry. No rashes or visible lesions. Extremities: Moving without issues. No motor deficits on inspection Lymphatics: No edema Abdomen: Moderately distended. No rebound or guarding. Results & Data Vital Signs (Past 12 Hours) Vital Signs Temp Pulse Resp BP Pulse Ox O2 Del Method O2 Flow Rate 08/06/22 07:43 36.7 C 62 18 141/67 H 96 Room Air 08/06/22 04:15 Nasal Cannula 2 08/06/22 04:15 Nasal Cannula 2 08/06/22 04:15 36.6 C 62 20 202/100 H 97 Nasal Cannula 2 08/06/22 04:19 62 16 167/90 H 95 Nasal Cannula 2 08/06/22 04:00 62 16 165/99 H 95 Room Air 08/06/22 03:58 Nasal Cannula 2 08/06/22 03:23 63 18 187/101 H 96 Nasal Cannula 2 PG Care Time/CCT Total # of Minutes Spent Total Time Spent with Patient: Total time spent is greater than 50% in coordination of care (as documented) at patient's floor/unit and/or counseling patient: Coding Level of Care Code 56150 IN/OBS CONSULT LVL 5,80M Diagnoses Nephrolithiasis N20.0 Back pain M54.50 Back pain laterality: left Back pain location: low back pain Chronicity: unspecified Sciatica presence: without sciatica Leukocytosis D72.829 (2) Back pain Back pain laterality: left Back pain location: low back pain Chronicity: unspecified Sciatica presence: without sciatica Qualified Code(s): M54.50 - Lo w back pain, unspecified
[2022-08-07] MEDS: SODIUM CHLORIDE 0.9% 1000ML 1,000 ML IV SCH ×2 (05:12→14:22)
[2022-08-07] MEDS: ACETAMINOPHEN 1,000 MG/100 ML VIAL IV SCH ×2 (05:21→14:32)
[2022-08-07] MEDS ORDERED: cefTRIAXone SODIUM 2,000 MG in DEXTROSE 5% 50 ML IV SCH (06:00)
[2022-08-07] MEDS: TAMSULOSIN HCL 0.4 MG CAP PO SCH (08:43)
[2022-08-07 08:47] LABS: Hematocrit (blood only) 38.9 % (42.0-52.0); Hemoglobin 13.1 g/dl (14.0-18.0); Mean Corpuscular Hemoglobin 28.9 pg (25.0-34.0); Mean Corpuscular Hgb Conc 33.7 g/dL (32.0-36.0); Mean Corpuscular Volume 85.9 fL (80.0-100.0); Mean Platelet Volume 11.6 fL (9.4-12.4); Platelet Count 172 K/uL (130-400); RDW Coefficient of Variation 13.5 % (11.5-14.5); RDW Standard Deviation 42.2 fL (36.4-46.3); Red Blood Count 4.53 M/uL (4.70-6.10); White Blood Count 6.73 K/ul (4.8-10.8)
[2022-08-07 09:27] LABS: BUN Creatinine Ratio 14.6 (10-20); Calcium 7.9 mg/dl (8.6-10.3); Creatinine Clr Calc Pharmacy 100.6 ml/min; Est GFR (African American) 88.6 ml/min; Est GFR (Non-African American) 76.4 ml/min; Potassium 3.9 mmol/L (3.5-5.1)
--- NOTE | 2022-08-07 09:54 | Urology Progress Note ---
Date of Service August 07, 2022 Assessment & Plan (1) Calculus of distal left ureter: Plan: Follow-up of 7 mm left UVJ stone. Subjectively doing well. Pain has been controlled. No pain medication utilized overnight. He denies stone passage. He remains afebrile and hemodynamically stable. Labs reviewedcreatinine 1.03, WBC downtrending (6.73). UA on arrival was not suggestive of infection. UCx pending - prelim no growth. He remains on IV Rocephin. We discussed options for stone management including trial of passage with max expulsive therapy versus surgical intervention while inpatient in the form of left ureteral stent placement. We discussed outpatient surgical options including ESWL versus ureteroscopy, laser lithotripsy and stent placement. He prefers trial of passage for now and consideration of outpatient procedure. His pain is controlled, creatinine normal and no leukocytosis. UC showing no growth so far. Reasonable to discharge to home with max expulsive therapy. Will obtain KUB prior to discharge. Will arrange close outpatient follow-up with urology. will sign off. Admission and Anticipated Discharge Date Admission Date: August 06, 2022 Subjective Patient seen and examined at bedside this morning. He is awake, alert and resting in bed. His pain has been controlled. No acute episodes of pain overnight. No pain medication utilized overnight. Denies stone passage. Voiding without difficulty. Reports abdomen "queasy" at times. No nausea or vomiting. No fever or chills. Review of Systems Constitutional: as per Subjective / HPI Gastrointestinal: as per Subjective / HPI Genitourinary: + as per Subjective / HPI Physical Exam Constitutional: well developed and well nourished; no acute distress Respiratory: normal respiratory effort; no respiratory distress and no labored breathing Cardiovascular: Extremities: no pedal edema Gastrointestinal (Abdomen): Inspection/Auscultation: abdomen normal to inspection; abdomen not distended Neurologic: moves all extremities and awake Psychiatric: Orientation: alert and oriented x 3 Results & Data Vital Signs (Past 12 Hours) Vital Signs Temp Pulse Resp BP Pulse Ox O2 Del Method 08/07/22 08:04 36.6 C 55 L 18 161/81 H 93 Room Air PG Care Time/CCT Total # of Minutes Spent Total Time Spent with Patient: Total time spent is greater than 50% in coordination of care (as documented) at patient's floor/unit and/or counseling patient: Coding Level of Care Code 77350 SUB INP/OBS CARE 05/24MIN Diagnoses Calculus of distal left ureter N20.1
--- NOTE | 2022-08-07 13:39 | XRay Report ---
KUB HISTORY: Follow up study in a patient with left ureteral calculus left ureteral stone, visibility COMPARISON: CT abdomen and pelvis 08/05/2022 FINDINGS: Nonobstructive bowel gas pattern. The renal shadows are mostly obscured by bowel gas. There are a few calculi the bilateral renal calculi can noted measuring up to 4 mm. Pelvic basin phlebolit hs. 1.1 cm bilateral ureterovesicular junction calculi of the distal ureters appear unchanged. No pne umoperitoneum or pneumatosis. Posterior interbody mary and screw fusion with discectomy redemonstrated L5-S1. No fracture. IMPRESSION: 1. Unchanged positioning of the 1.1 cm bilateral distal ureteral/ureterovesicular junction calculi. 2. Stable nephrolithiasis. ACT 112: Negative or not required by law. The above report was generated using voice recognition software. It may contain grammatical, syntax o r spelling errors. Electronically signed by: Scott Jaramillo M.D. 08/07/2022 1:36 PM
--- NOTE | 2022-08-07 16:33 | Discharge Summary ---
Date of Service August 07, 2022 Admission HPI Per Admitting Provider 62-year-old male past medical history significant for nephrolithiasis presented to the ER for worsening low back pain isolated more so to the left side over the last 24 hours. At first thought that the pain might be musculoskeletal due to a history of back surgery (L4/5 surgery many years ago). Does not endorse dysuria or increased urinary frequency, no bowel or bladder incontinence has been trying to take Tylenol at home without relief. Reports some nausea when he has to move, but no nausea when he is staying still. Quantifies pain as a 10 out of 10, alleviated some with walking. In the ER patient noted to be hemodynamically stable with a blood pressure in the 170s systolic, saturating well on room air. Lab work notable for WBC count of 14.07 with a neutrophilic predominance, creatinine 1.28 without baseline to compare, urinalysis with 3+ blood but negative for bacteria, COVID-[address] abdomen and pelvis with evidence of mild to moderate hydroureteronephrosis secondary to large UVJ stone. CT of lumbar spine with multilevel degenerative disease and postsurgical changes, but no evidence of canal stenosis. Hospitalist service was consulted for evaluation and management of his obstructive stone with urology consult. Principal Diagnosis L Urolithiasis Discharge Exam Constitutional WD/WN, vitals as above Eyes + anicteric sclerae Neck trachea midline, no thyromegaly Respiratory normal respiratory effort, lungs clear to auscultation Cardiovascular RRR, no murmur, no edema Gastrointestinal (Abdomen) normal bowel sounds, soft, nontender, no hepatosplenomegaly Musculoskeletal Head/Neck/Chest: normocephalic and head atraumatic Skin no rashes, warm and dry Neurologic moves all extremities Psychiatric Orientation: alert Discharge Data Allergies Allergy/AdvReac Type Severity Reaction Status Date / Time morphine AdvReac Vomiting Verified 08/05/22 23:40 Consultations 08/06/22 01:32 ED Decision to Admit Stat 08/06/22 02:56 Consult Urology Routine Ordered Studies 08/05/22 21:39 CT abd pelvis wo con Stat CT lumbar spine wo con Stat Hospital Course (1) Nephrolithiasis: 62-year-old male with past medical history of right-sided kidney stone that required cystoscopy removal over 15 years ago who presents with 24 hours of intractable left groin and left low back pain. - CT abdomen/pelvis with mild to moderate left-sided hydroureteronephrosis related to a large 7mm calculus at the left UVJ. - Urology recommends conservative management - Initially on Rocephin but was discontinued as his urine culture was negative prior to antibiotic initiation - Seen by urology who feels safe to do a home expulsion trial with close follow- up. - Continue daily tamsulosin, strain urine - Discharge patient on tamsulosin and oxycodone for pain control (2) Elevated serum creatinine: - Creatinine 1.28 on admission, currently down trended to 1.03. Consider resolved. (3) Previous back surgery: - History of L4/L5 back surgery many years ago. CT of the L-spine with degenerative and postsurgical changes, but no acute findings. No bowel or bladder incontinence. (4) Leukocytosis: Resolved prior to discharge Plan FEN/GI: regular diet code: full dispo: D/c home with close f/u Total Time Total Time Spent Total Time Spent (In Minutes): <30 Discharge Plan Discharge Items Patient Disposition: Home - Self-Care Reason For Visit: OBSTRUCTIVE UVJ STONE, HYDROURETERONEPHROSIS Discharge Diagnosis: Urolithiasis Condition on Discharge: Good Activity: Per Instructions section Non-emergency contact: Primary Care Provider and A&P Mechanic Call non-emergency contact if: you have any medication questions and your pain is not controlled Follow-up/Referrals: Mandy Anand CRNP [Nurse Practitioner] - 08/11/22 9:30 am PCP,NO [Primary Care Provider] - Diet: Regular Addtl Attending Provider Instructions: You were seen in the hospital for worsening back pain with a history of previous kidney stones. While you are here you had imaging in the ED suggestive of a left kidney stone that is obstructing your ureter was the source of your pain. You were seen by her urologist who at the time of your discharge is recommending a trial of expulsion at home with close follow-up. We will send you with medications to help allow the stone to pass through your urinary system more easily as well as control your pain. You are currently not showing any signs of urinary tract infection, so no antibiotic therapy at discharge is warranted at this time. You will receive a phone call in regards to when you are follow-up appointment with urology is. It has been a pleasure to be part of your care and we wish you the best in both your health and recovery. Pending Studies at Discharge: No Stand-Alone Forms: [facility], Pain - Opioid Pain Management, Smoking Cessation Medications and DC Order Prescriptions: New oxycodone 5 mg tablet 5 mg PO Q6H PRN (Reason: pain) Qty: 15 0RF tamsulosin 0.4 mg capsule 0.4 mg PO BID Qty: 20 0RF Continued tetrahydrozoline [Visine] 0.05 % Drops 1 drp OPHTHALMIC (EYE) QID PRN (Reason: Dry Eyes) acetaminophen [Tylenol Extra Strength] 500 mg Tablet 1,000 mg PO Q6H PRN (Reason: Pain) loratadine [Claritin] 10 mg Tablet 10 mg PO DAILY PRN (Reason: allergies) Discharge Orders: Discharge Order (Routine); Ordered 08/07/22 Ordered By: Arden Stokes/Other Patient Handouts: Kidney Stone (Urine), Having a Ureteral Stent, Kidney Stones Expectant Tx Admission Data Admit Date/Time: 08/06/22 02:56 Attending Provider: Terrence Severino Admit Provider: Valentina Jerez Primary Care Provider: PCP,NO Other Providers: Carlos Enrique Espinal ; Valentina Jerez ; Elena Benites Other Interventions: Discharge Summary Assessment (RN) Last Done: 08/07/22 16:38 Supervising Physician Co-Signing Physician Notes I personally examined the patient and verified all hernandez points of history and exam, discussed case, and agree with decision making with Dr Cagle feeling better pain controlled. urology prefers expulsive therapy, pt understands vitals noted nad heent nc at mmm breathing unlabored no accessory muscles good effort skin no rashes no pallor or icterus ureterolithiasis - med management, safe for home. outlined red flags (pain uncontrolled by meds, intractable nausea/vomiting, fever) otherwise outpt urology f/u
--- NOTE | 2022-08-07 17:01 | Billing Data ---
Date of Service August 07, 2022 Coding Level of Care Code 41327 IN/OBS DISCH 30 MIN/LESS
== END 2022-08-07 17:13 | disposition home or self-care (01) | DRG 694 ==
LOC: ED 20:34 → SUATTDRO 08-06 02:56 → 3N 08-06 02:56

== ENCOUNTER 2022-09-28 11:50 | Inpatient (IN) ==
[2022-09-28] MEDS ORDERED: SODIUM CHLORIDE 0.9% 500 ML IV STA (12:00)
[2022-09-28 12:41] LABS: Basophils # (auto) 0.03 K/uL (0-0.2); Basophils % (auto) 0.2 %; Eosinophils # (auto) 0.01 K/uL (0-0.50); Eosinophils % (auto) 0.1 %; Hemoglobin 15.6 g/dl (14.0-18.0); Immature Granulocytes # (auto) 0.05 K/uL (0.01-0.20); Immature Granulocytes % (auto) 0.4 %; Lymphocytes # (auto) 1.02 K/uL (1.2-3.4); Lymphocytes % (auto) 7.4 %; Mean Corpuscular Hemoglobin 28.9 pg (25.0-34.0); Mean Corpuscular Hgb Conc 33.9 g/dL (32.0-36.0); Mean Corpuscular Volume 85.3 fL (80.0-100.0); Mean Platelet Volume 11.4 fL (9.4-12.4); Monocytes # (auto) 1.23 K/uL (0.11-0.59); Monocytes % (auto) 8.9 %; Neutrophils # (auto) 11.44 K/uL (1.40-6.50); Platelet Count 217 K/uL (130-400); RDW Coefficient of Variation 13.7 % (11.5-14.5); RDW Standard Deviation 42.8 fL (36.4-46.3); Red Blood Count 5.39 M/uL (4.70-6.10); White Blood Count 13.78 K/ul (4.8-10.8)
[2022-09-28 12:56] LABS: Albumin Globulin Ratio 1.1 (0.9-2); Albumin Level 4.3 gm/dl (3.4-5.0); Bilirubin,Total 1.3 mg/dl (0.2-1.0); Calcium 9.6 mg/dl (8.6-10.3); Creatinine Clr Calc Pharmacy 60.4 ml/min; Est GFR (African American) 48.7 ml/min; Globulin 3.8 gm/dl (2.5-4.0); Potassium 4.1 mmol/L (3.5-5.1); Total Protein 8.1 gm/dl (6.0-8.3)
[2022-09-28] MEDS ORDERED: ONDANSETRON INJ 2 MG/ML 2 ML VIAL IV STA (12:56)
[2022-09-28] MEDS ORDERED: SODIUM CHLORIDE 0.9% 1000ML 1,000 ML IV ONE ×2 (12:56→16:18)
[2022-09-28] MEDS ORDERED: cefTRIAXone SODIUM 2,000 MG/70 ML BAG IV STA (12:57)
[2022-09-28] MEDS: HYDROmorphone INJ 0.5 MG/0.5 ML SYR IV PRN ×3 (13:10→16:33)
--- NOTE | 2022-09-28 13:16 | Emergency Department Note ---
Impression & Plan Fever, Kidney stone, S/P ureteral stent placement ED Provider Note INFORMANT: Patient and significant other ED PROVIDER(S): Miller Lundberg MD CHIEF COMPLAINT: Flank pain PLAN: Disposition: Admitted Condition: Good Outpatient prescription management: none Referral: None MEDICAL DECISION MAKING: Patient presented with flank pain. Prior records were reviewed regarding his urology visit. The patient was treated with IV Zofran, and Dilaudid. He was hydrated. The patient was given IV Rocephin after his blood work revealed a leukocytosis and he has findings consistent with infection on urinalysis. Patient was given Tylenol. Patient did have blood cultures performed as well. CT imaging shows ureteral stents to be in good place. I discussed the case with Dr. Mcfadden of urology. He will follow the patient in the hospital and agreed with admission to internal medicine. Consultation was made with Dr. Julio Fuller of the [facility] service. Patient was evaluated in the ER for further management. Discussed with manager of digital After review of the information above and other included data, I feel the patient requires admission. Triage Nursing notes reviewed and agree them. Vital Signs: reviewed and remarkable for hypertension Prior /Outside records reviewed: Urology visit records Differential diagnosis: Infected kidney stone, complication of ureteral stent,Sepsis, UTI, pneumonia, metabolic, electrolyte abnormalities, cardiac sources, toxicologic, as well as other pathologies. Diagnostics, as interpreted by me: ECG: none Cardiac Monitoring: Cardiac monitoring ordered by me: The patient was placed on continuous cardiac monitoring and observed. It revealed a normal sinus rhythm at 81 beats per minute without ectopy or evidence of dysrhythmia. Medical decision rules: none Imaging studies: CT imaging as above. HPI: The patient is a 62year old male who presents to the Emergency Room with complaints of flank pain that is mostly on the left. This started a month ago and is intermittent. Patient was diagnosed with kidney stones and had a ureter al stent placed. He had another stent done a week ago. The patient also notes the following associated symptoms, hematuria fever and vomiting that started last night. The patient has found no relieving factors. Current pain is rated as 7/10. Pt denies LOC, headache, diaphoresis, visual changes, neck pain, chest pain, breathing difficulties, melena, hematochezia, numbness, weakness, lymphadenopathy, rash, or other complaints. PAST MEDICAL HISTORY: See Below, kidney stones PAST SURGICAL HISTORY: See Below, cystoscopy SOCIAL HISTORY: See Below, HOME MEDICATIONS: See Below ALLERGIES: See Below VITALS: See Below PHYSICAL EXAMINATION: GENERAL: Awake, alert, uncomfortable-appearing, in no distress HENT: Normocephalic, atraumatic. Oropharynx unremarkable. EYES: Normal conjunctiva. Sclera non-icteric. NECK: Inspection normal. Non-tender. Supple. No nuchal rigidity. FROM. No masses. RESPIRATORY: Clear to auscultation. No wheezes. No rales. Normal respiratory effort. CARDIAC: Borderline tachycardic rate. Normal rhythm. No murmurs. No rubs. Extremities warm and well perfused. Pulses equal. No JVD. GI: Soft, non-distended. Left flank tenderness to palpation. No rebound or guarding. No masses. RECTAL: Deferred. MUSCULOSKELETAL: Atraumatic. Chest examination reveals no tenderness. The back is symmetrical on inspection without obvious abnormality. There is left CVA tenderness to palpation. No joint edema. LOWER EXTREMITIES: Calves are equal size bilaterally and non-tender. No edema. N o discoloration. NEURO: Normal sensorium. No sensory or motor deficits noted. SKIN: No rash or jaundice noted. Past Med/Surg History Medical History DDD (degenerative disc disease) History of colon cancer 20+ years ago, treated surgically History of COVID-19 ?2021- sinus congestion > resolved Nephrolithiasis Surgical History History of bowel resection History of colonoscopy History of cystoscopy 08/17/22 [place] History of tooth extraction Previous back surgery Family History Other No family history of adverse response to anesthesia No pertinent family history Social History Smoking Status: Never smoker Second Hand Exposure: No; Do You Dip or Chew Tobacco: No; Hx Alcohol Use: No Hx Substance Use: No Preferred Language: Angolan Communication Ability: Effective Urban Planning Professor Required: No Beliefs That Will Affect Care: None Current Living Situation: Spouse Feels Safe at Home: Yes Assistive Devices: Denture - Upper Allergies Allergies Allergy/AdvReac Type Severity Reaction Status Date / Time morphine AdvReac Vomiting Verified 09/28/22 16:33 Home Meds Home Medications Medication Instructions Recorded Confirmed acetaminophen 500 mg tablet 1,000 mg PO Q6H PRN Pain 08/05/22 09/28/22 (Tylenol Extra Strength) docusate sodium 100 mg tablet 100 mg PO QAM 09/11/22 09/28/22 (Stool Softener) ciprofloxacin HCl 500 mg tablet 0 mg PO BID 09/28/22 09/28/22 Previous Rx's Medication Instructions Recorded phenazopyridine 200 mg tablet 200 mg PO Q8H PRN pain #10 tabs 08/17/22 (Pyridium) tamsulosin 0.4 mg capsule 0.4 mg PO HS #30 caps 09/21/22 oxycodone-acetaminophen 5 mg-325 1 tab PO Q8H PRN pain #7 tabs 09/26/22 mg tablet (Percocet) Results & Data (ED) Vital Signs Vital Signs - 24 hr 09/28/22 11:54 09/28/22 13:39 09/28/22 16:15 Temperature 37.9 C H 38.5 C H Temperature Source Oral Oral Pulse Rate 100 H Pulse Rate [Right Finger] 88 Pulse Rhythm [Right Finger] Regular Pulse Strength [Right Finger] Normal Respiratory Rate 24 14 Respiratory Effort / Characteristics Non-Labored Non-Labored Spontaneous Respiratory Depth Normal Normal Respiratory Pattern Regular Blood Pressure 116/70 Blood Pressure [Left Arm] 129/87 Blood Pressure Mean 85 Blood Pressure Mean [Left Arm] 101 Blood Pressure Position [Left Arm] Lying Pulse Oximetry 96 95 Oxygen Delivery Method Room Air Room Air Sepsis Recent Fever Within 48 Hours No Sepsis New/Unexplained Change in Mental Status N/A Sepsis Action Taken by Nursing No Action Required 09/28/22 16:25 Temperature 38.5 C H Temperature Source Oral Pulse Rate Pulse Rate [Right Finger] 81 Pulse Rhythm [Right Finger] Regular Pulse Strength [Right Finger] Normal Respiratory Rate 16 Respiratory Effort / Characteristics Non-Labored Spontaneous Respiratory Depth Normal Respiratory Pattern Regular Blood Pressure Blood Pressure [Left Arm] 195/94 H Blood Pressure Mean Blood Pressure Mean [Left Arm] 127 Blood Pressure Position [Left Arm] Lying Pulse Oximetry 95 Oxygen Delivery Method Room Air Sepsis Recent Fever Within 48 Hours Sepsis New/Unexplained Change in Mental Status Sepsis Action Taken by Nursing Laboratory Data 09/28/22 12:05 09/28/22 12:05 Lab Results 09/28/22 09/28/22 09/28/22 Range/Units 12:05 12:05 13:36 WBC 13.78 H (4.8-10.8) K/ul RBC 5.39 (4.70-6.10) M/uL Hgb 15.6 (14.0-18.0) g/dl Hct 46.0 (42.0-52.0) % MCV 85.3 (80.0-100.0) fL MCH 28.9 (25.0-34.0) pg MCHC 33.9 (32.0-36.0) g/dL RDW Std Deviation 42.8 (36.4-46.3) fL RDW Coeff of Kb 13.7 (11.5-14.5) % Plt Count 217 (130-400) K/uL MPV 11.4 (9.4-12.4) fL Immature Gran % (Auto) 0.4 % Neut % (Auto) 83.0 % Lymph % (Auto) 7.4 % Kings % (Auto) 8.9 % Eos % (Auto) 0.1 % Baso % (Auto) 0.2 % Neut # (Auto) 11.44 H (1.40-6.50) K/uL Lymph # (Auto) 1.02 L (1.2-3.4) K/uL Kings # (Auto) 1.23 H (0.11-0.59) K/uL Eos # (Auto) 0.01 (0-0.50) K/uL Baso # (Auto) 0.03 (0-0.2) K/uL Immature Gran # (Auto) 0.05 (0.01-0.20) K/uL Sodium 136 (136-145) mmol/L Potassium 4.1 (3.5-5.1) mmol/L Chloride 101 (98-107) mmol/L Carbon Dioxide 27 (21-32) mmol/L Anion Gap 8 (3-11) BUN 22 (6-23) mg/dl Creatinine 1.69 H (0.6-1.4) mg/dl Est Cr Clr Drug Dosing 60.4 ml/min Est GFR ( Amer) 48.7 ml/min Est GFR (Non-Af Amer) 42.0 ml/min BUN/Creatinine Ratio 13.0 (10-20) Glucose 116 H (70-99(Fasting)) mg/dl Lactate 0.9 (0.4-2.0) mmol/L Calcium 9.6 (8.6-10.3) mg/dl Total Bilirubin 1.3 H (0.2-1.0) mg/dl AST 14 (13-39) U/L ALT 15 (7-52) U/L Alkaline Phosphatase 63 (34-104) U/L Total Protein 8.1 (6.0-8.3) gm/dl Albumin 4.3 (3.4-5.0) gm/dl Globulin 3.8 (2.5-4.0) gm/dl Albumin/Globulin Ratio 1.1 (0.9-2) Urine Color Urine Appearance (Clear) Urine pH (4.5-7.5) Ur Specific [place] (1.000-1.030) Urine Protein (Negative) Urine Glucose (UA) (Negative) Urine Ketones (Negative) Urine Blood (Negative) Urine Nitrite (Negative) Urine Bilirubin (Negative) Urine Urobilinogen (Negative) Ur Leukocyte Esterase (Negative) Urine RBC (0-4) /hpf Urine WBC (0-5) /hpf Ur Epithelial Cells (0-5) /lpf Urine Bacteria (Negative) Urine Mucus (None Prsent) SARS-CoV-2, RNA, NAAT (NEGATIVE) 09/28/22 09/28/22 Range/Units 13:50 Unknown WBC (4.8-10.8) K/ul RBC (4.70-6.10) M/uL Hgb (14.0-18.0) g/dl Hct (42.0-52.0) % MCV (80.0-100.0) fL MCH (25.0-34.0) pg MCHC (32.0-36.0) g/dL RDW Std Deviation (36.4-46.3) fL RDW Coeff of Kb (11.5-14.5) % Plt Count (130-400) K/uL MPV (9.4-12.4) fL Immature Gran % (Auto) % Neut % (Auto) % Lymph % (Auto) % Kings % (Auto) % Eos % (Auto) % Baso % (Auto) % Neut # (Auto) (1.40-6.50) K/uL Lymph # (Auto) (1.2-3.4) K/uL Kings # (Auto) (0.11-0.59) K/uL Eos # (Auto) (0-0.50) K/uL Baso # (Auto) (0-0.2) K/uL Immature Gran # (Auto) (0.01-0.20) K/uL Sodium (136-145) mmol/L Potassium (3.5-5.1) mmol/L Chloride (98-107) mmol/L Carbon Dioxide (21-32) mmol/L Anion Gap (3-11) BUN (6-23) mg/dl Creatinine (0.6-1.4) mg/dl Est Cr Clr Drug Dosing ml/min Est GFR ( Amer) ml/min Est GFR (Non-Af Amer) ml/min BUN/Creatinine Ratio (10-20) Glucose (70-99(Fasting)) mg/dl Lactate (0.4-2.0) mmol/L Calcium (8.6-10.3) mg/dl Total Bilirubin (0.2-1.0) mg/dl AST (13-39) U/L ALT (7-52) U/L Alkaline Phosphatase (34-104) U/L Total Protein (6.0-8.3) gm/dl Albumin (3.4-5.0) gm/dl Globulin (2.5-4.0) gm/dl Albumin/Globulin Ratio (0.9-2) Urine Color [place] Urine Appearance Cloudy A (Clear) Urine pH (4.5-7.5) Ur Specific [place] 1.016 (1.000-1.030) Urine Protein (Negative) Urine Glucose (UA) (Negative) Urine Ketones (Negative) Urine Blood (Negative) Urine Nitrite (Negative) Urine Bilirubin (Negative) Urine Urobilinogen (Negative) Ur Leukocyte Esterase (Negative) Urine RBC >30 H (0-4) /hpf Urine WBC 10-30 H (0-5) /hpf Ur Epithelial Cells 20-30 H (0-5) /lpf Urine Bacteria 2+ H (Negative) Urine Mucus Present A (None Prsent) SARS-CoV-2, RNA, NAAT NEGATIVE (NEGATIVE) Administered Medications Hydromorphone HCl (Hydromorphone Inj 0.5 Mg/0.5 Ml Syr) 0.5 mg IV Q15M PRN PRN Reason: Pain Stop: 10/12/22 12:55 Last Admin: 09/28/22 16:33 Dose: 0.5 mg Documented By: CONTINUOUS CHURN BUTTERMAKER Admin: 09/28/22 15:05 Dose: 0.5 mg Documented By: CONTINUOUS CHURN BUTTERMAKER Admin: 09/28/22 13:10 Dose: 0.5 mg Documented By: CONTINUOUS CHURN BUTTERMAKER Discontinued Medications Acetaminophen (Acetaminophen 500 Mg Tab) 1,000 mg PO NOW STA Stop: 09/28/22 16:19 Last Admin: 09/28/22 16:28 Dose: 1,000 mg Documented By: CONTINUOUS CHURN BUTTERMAKER Sodium Chloride (Nss) 500 mls @ 999 mls/hr IV .Q31M STA Stop: 09/28/22 12:30 Last Infusion: 09/28/22 13:44 Dose: 0 mls/hr Documented By: CONTINUOUS CHURN BUTTERMAKER Admin: 09/28/22 13:10 Dose: 999 mls/hr Documented By: CONTINUOUS CHURN BUTTERMAKER Sodium Chloride (Nss 1000ml) 1,000 mls @ 999 mls/hr IV .Q1H1M ONE Stop: 09/28/22 13:56 Last Infusion: 09/28/22 16:29 Dose: 0 mls/hr Documented By: CONTINUOUS CHURN BUTTERMAKER Admin: 09/28/22 13:10 Dose: 999 mls/hr Documented By: CONTINUOUS CHURN BUTTERMAKER Ceftriaxone Sodium (Rocephin) 2,000 mg in 70 mls @ 140 mls/hr IV NOW STA Stop: 09/28/22 13:26 Last Infusion: 09/28/22 14:20 Dose: 0 mls/hr Documented By: CONTINUOUS CHURN BUTTERMAKER Admin: 09/28/22 13:46 Dose: 140 mls/hr Documented By: CONTINUOUS CHURN BUTTERMAKER Sodium Chloride (Nss 1000ml) 1,000 mls @ 999 mls/hr IV .Q1H1M ONE Stop: 09/28/22 17:18 Last Admin: 09/28/22 16:29 Dose: 999 mls/hr Documented By: CONTINUOUS CHURN BUTTERMAKER Ondansetron HCl (Ondansetron Inj 2 Mg/Ml 2 Ml Vial) 4 mg IV NOW STA Stop: 09/28/22 12:57 Last Admin: 09/28/22 13:10 Dose: 4 mg Documented By: CONTINUOUS CHURN BUTTERMAKER Imaging Data Radiologist's Impression: Abdomen/Pelvis CT 09/28/22 12:50 CT abd pelvis wo con CLINICAL HISTORY: fever, stones, stented TECHNIQUE: Helical axial images of the abdomen and pelvis were obtained. Automated dose lowering techniques and/or adjustment according to patient size were utilized for this exam. This exam was performed without intravenous contrast. CT DOSE: 1482.20 mGy.cm COMPARISON: Comparison is made to CT abdomen pelvis 08/05/2022 FINDINGS: Lower chest: No acute abnormality. Liver: Hepatic steatosis is noted. Gallbladder and biliary tree: Cholelithiasis is seen without evidence of cholecystitis. No intra- or extrahepatic biliary ductal dilation. Pancreas: Unremarkable, no focal lesions. Spleen: Unremarkable. Adrenals: Unremarkable. Kidneys and ureters: A large cyst is seen. Nonobstructive stones are seen. Bilateral nephroureteral stents are seen. Bladder: Unremarkable. Reproductive organs: Prostatic calcifications are seen which may represent prior hemorrhage or granulomatous disease. Bowel: Partial colectomy changes are seen in the colon. The appendix is normal. Lymph nodes Retroperitoneal: Unremarkable. Pelvic: Unremarkable. Mesenteric: Unremarkable. Peritoneum: Normal. Vessels: Unremarkable. Abdominal wall: A fat-containing umbilical hernia is seen. Bones: Degenerative changes in the visualized spine. Posterior fixation hardware is seen spanning L5-S1. IMPRESSION: 1. No acute abnormalities are seen. There are nonobstructive stones bilaterally. No retroperitoneal hemorrhage is seen. Of note, CT is not sensitive to exclude pyelonephritis. 2. Additional findings as above. ACT 112: Negative or not required by law. Electronically signed by: Reinaldo Najera M.D. 09/28/2022 2:37 PM Discharge Plan Visit Data Chief Complaint: Flank Pain Stated Complaint: POSS KIDNEY STONE, FLANK PAIN, BACK PAIN ED Provider: Miller Lundberg Discharge Problem: Fever, Kidney stone, S/P ureteral stent placement Patient Disposition: Admitted As Inpatient Discharge Instructions Interventions: ED Discharge Assessment Last Done: 09/28/22 17:56 Forms Stand Alone Forms: [employer] Prescriptions Prescriptions: No Action oxycodone-acetaminophen [Percocet] 5-325 mg tablet 1 tab PO Q8H PRN (Reason: pain) Qty: 7 0RF acetaminophen [Tylenol Extra Strength] 500 mg Tablet 1,000 mg PO Q6H PRN (Reason: Pain) phenazopyridine [Pyridium] 200 mg tablet 200 mg PO Q8H PRN (Reason: pain) Qty: 10 0RF docusate sodium [Stool Softener] 100 mg Tablet 100 mg PO QAM tamsulosin 0.4 mg capsule 0.4 mg PO HS Qty: 30 0RF ciprofloxacin HCl 500 mg tablet 0 mg PO BID Rx Instructions: 500mg twice daily: Picked up on 09/27/22 but patient hasn't started medication yet as of 09/28/22 Referrals Referrals: PCP,NO [Primary Care Provider] -
[2022-09-28 14:21] LABS: Appearance Urine Cloudy (Clear); Color Urine Orange; Specific Gravity Urine 1.016 (1.000-1.030)
[2022-09-28 14:23] LABS: RBC Urine >30 /hpf (0-4)
[2022-09-28 14:24] LABS: Bacteria Urine 2+ (Negative); Epithelial Cell Urine 20-30 /lpf (0-5); Mucus Urine Present (None Prsent)
--- NOTE | 2022-09-28 14:39 | CT Scan Report ---
CT abd pelvis wo con CLINICAL HISTORY: fever, stones, stented TECHNIQUE: Helical axial images of the abdomen and pelvis were obtained. Automated dose lowering tech niques and/or adjustment according to patient size were utilized for this exam. This exam was perfor med without intravenous contrast. CT DOSE: 1482.20 mGy.cm COMPARISON: Comparison is made to CT abdomen pelvis 08/05/2022 FINDINGS: Lower chest: No acute abnormality. Liver: Hepatic steatosis is noted. Gallbladder and biliary tree: Cholelithiasis is seen without evidence of cholecystitis. No intra- or extrahepatic biliary ductal dilation. Pancreas: Unremarkable, no focal lesions. Spleen: Unremarkable. Adrenals: Unremarkable. Kidneys and ureters: A large cyst is seen. Nonobstructive stones are seen. Bilateral nephroureteral s tents are seen. Bladder: Unremarkable. Reproductive organs: Prostatic calcifications are seen which may represent prior hemorrhage or granul omatous disease. Bowel: Partial colectomy changes are seen in the colon. The appendix is normal. Lymph nodes Retroperitoneal: Unremarkable. Pelvic: Unremarkable. Mesenteric: Unremarkable. Peritoneum: Normal. Vessels: Unremarkable. Abdominal wall: A fat-containing umbilical hernia is seen. Bones: Degenerative changes in the visualized spine. Posterior fixation hardware is seen spanning L5- S1. IMPRESSION: 1. No acute abnormalities are seen. There are nonobstructive stones bilaterally. No retroperitoneal hemorrhage is seen. Of note, CT is not sensitive to exclude pyelonephritis. 2. Additional findings as above. ACT 112: Negative or not required by law. Electronically signed by: Reinaldo Najera M.D. 09/28/2022 2:37 PM
[2022-09-28] MEDS ORDERED: ACETAMINOPHEN 500 MG TAB PO STA (16:18)
--- NOTE | 2022-09-28 16:57 | History & Physical Report ---
Date of Service September 28, 2022 Assessment & Plan (1) Sepsis: Plan: -Admit to med/tele -Currently stable -Noted to be febrile with a leukocytosis, evidence of acute UTI and BL CVA tenderness on admission -Lacate WNL -S/P one dose of ceftriaxone and currently finishing his second liter of NSS in the ED -Will continue with ceftriaxone q24h as he does not have a hx of drug resistant organisms -Will give another 1L Normosol for a total of 3L IV fluids to complete his sepsis bolus -Monitor intake/output q6h -Urology consult placed -Pain control with prn IV tylenol for pain (1-3,fever,headache), and IV diluadid q4h prn pain 4+ -Will add prn antiemetic treatment after admission ECG is obtained -BL SCD's for DVT PPX tonight in case of possible procedure in the next 24 hours -AM CBC, CMP (2) Pyelonephritis: Plan: -See sepsis -Tailor abx to blood and urine cultures (3) PANDA (acute kidney injury): Plan: -Cr today at 1.6, baseline is near 2 -Likely multifactorial including acute pyelonephritis and dehydration -No signs of obstruction on CT of the abd/pelvis today -Continue IV fluids overnight -Monitor intake/output -Avoid nephrotoxic agents -Monitor am renal function and electrolytes (4) S/P ureteral stent placement: Plan: -Urology consulted -Monitor Intake and output (5) MAI (obstructive sleep apnea): Plan: -Non-compliant with HS CPAP -May desaturate while sleeping History of Present Illness Chief Complaint: Flank pain and fevers Primary Care Provider: NO PCP Carl is a 62 year old male with a PMH significant for multiple previous nephrolithiases S/P BL ureteral stent replacement with Dr. Espinal on 09/21/22, and MAI not compliant with HS CPAP who presented to the [facility] ED on 09/28/22 with flank pain and fevers. In the ED the patient was noted to be febrile at 38.5 but otherwise stable. Labs were significant for a leukocytosis of 13 with left shift of 11, cr of 1.69 (baseline is 1.0), total bili of 1.3, and UA concerning for infection. CT of the abd/pelvis wo con was read as "1. No acute abnormalities a re seen. There are nonobstructive stones bilaterally. No retroperitoneal hemorrhage is seen. Of note, CT is not sensitive to exclude pyelonephritis.2. Additional findings as above.". Prior to admission the patient was given 2L NSS, a dose of ceftriaxone, 1gm PO tylenol, and 0.5 mg IV Dilaudid. At the time of the exam the patient was lying in bed in no acute distress with his sitting bedside. He states that he has been having ongoing BL flank pain with L>R, right groin pain with urination, and bladder pain since his ureteral stent replacements on 09/21. He states that he called Dr. Espinal' office on yesterday due to the symptoms who prescribed him Ciprofloxacin, Pyridium, and Percocet. He picked up the medications yesterday but was unable to start the Cipro due to multiple episodes of nausea and vomiting yesterday. He stats he felt febrile and had chills yesterday. At the time of my exam he states he feels slightly improved compared to arrival. He is a full code and would want his to make medical decisions for him if he could not make them himself. Please refer to Dr. Fuller's attestation for any changes to the treatment plan. Allergies Allergy/AdvReac Type Severity Reaction Status Date / Time morphine AdvReac Vomiting Verified 09/28/22 16:33 Home Medications Medication Instructions Recorded Confirmed Type acetaminophen 500 mg tablet 1,000 mg PO Q6H PRN Pain 08/05/22 09/28/22 History (Tylenol Extra Strength) phenazopyridine 200 mg tablet 200 mg PO Q8H PRN pain #10 tabs 08/17/22 09/28/22 Rx (Pyridium) docusate sodium 100 mg tablet 100 mg PO QAM 09/11/22 09/28/22 History (Stool Softener) tamsulosin 0.4 mg capsule 0.4 mg PO HS #30 caps 09/21/22 09/28/22 Rx oxycodone-acetaminophen 5 mg-325 1 tab PO Q8H PRN pain #7 tabs 09/26/22 09/28/22 Rx mg tablet (Percocet) ciprofloxacin HCl 500 mg tablet 0 mg PO BID 09/28/22 09/28/22 History Past Med/Surg History Medical History DDD (degenerative disc disease) History of colon cancer 20+ years ago, treated surgically History of COVID-19 ?2021- sinus congestion > resolved Nephrolithiasis Surgical History History of bowel resection History of colonoscopy History [place]oscopy 08/17/22 [place] History of tooth extraction Previous back surgery Family History Other No family history of adverse response to anesthesia No pertinent family history Social History Smoking Status: Never smoker Second Hand Exposure: No; Do You Dip or Chew Tobacco: No; Hx Alcohol Use: No Hx Substance Use: No Preferred Language: Egyptian Communication Ability: Effective Nursing Home Assistant Required: No Beliefs That Will Affect Care: None Current Living Situation: Spouse Other Information That Helps Us Care for You: No Feels Safe at Home: Yes Safety Concerns: Feels Safe At This Time Assistive Devices: Denture - Upper Physical Exam Physical Exam: Physical Exam: General: In no acute distress, stated age, well-nourished, good hygiene HEENT: Normocephalic, atraumatic, no scleral icterus, pupils around round, symmetrical, and reactive to light, moist mucus membranes, trachea midline, no thyromegaly Chest/Pulm: No respiratory distress, symmetrical chest expansion, clear breath sounds throughout Cardiac: RRR, no murmurs noted Abdomen: Negative for ascites and bruising, normoactive bowel sounds, soft, mildly tender to palpation in the suprapubic region and LLQ Musculoskeletal: Symmetrical and without signs of acute trauma, upper and lower extremities with full ROM, no atrophy, spasticity, or flaccidity Extremities: Radial, dorsalis pedis, and posterior tibial pulses are intact and symmetrical, no edema noted in the BL LE's Skin: Warm, dry, no rashes , lesions, or scars noted Neuro: Alert and oriented to person, place, month, year, and president, no focal defects, no tremors noted Psych: No acute distress, calm and cooperative during the exam Results & Data Results & Data Vital Signs (Past 12 Hours) Vital Signs Temp Pulse Pulse Resp BP BP Pulse Ox 09/28/22 16:25 38.5 C H 81 16 195/94 H 95 09/28/22 16:15 38.5 C H 09/28/22 13:39 88 14 129/87 95 09/28/22 11:54 37.9 C H 100 H 24 116/70 96 O2 Del Method 09/28/22 16:25 Room Air 09/28/22 16:15 09/28/22 13:39 Room Air 09/28/22 11:54 Room Air Laboratory Results Abnormal lab results 09/28/22 09/28/22 09/28/22 Range/Units 12:05 12:05 13:50 WBC 13.78 H (4.8-10.8) K/ul Neut # (Auto) 11.44 H (1.40-6.50) K/uL Lymph # (Auto) 1.02 L (1.2-3.4) K/uL Rawlins # (Auto) 1.23 H (0.11-0.59) K/uL Creatinine 1.69 H (0.6-1.4) mg/dl Glucose 116 H (70-99(Fasting)) mg/dl Total Bilirubin 1.3 H (0.2-1.0) mg/dl Urine Appearance Cloudy A (Clear) Urine RBC >30 H (0-4) /hpf Urine WBC 10-30 H (0-5) /hpf Ur Epithelial Cells 20-30 H (0-5) /lpf Urine Bacteria 2+ H (Negative) Urine Mucus Present A (None Prsent) Diagnostic Findings Abdomen/Pelvis CT 09/28/22 12:50 CT abd pelvis wo con CLINICAL HISTORY: fever, stones, stented TECHNIQUE: Helical axial images of the abdomen and pelvis were obtained. Automated dose lowering techniques and/or adjustment according to patient size were utilized for this exam. This exam was performed without intravenous contrast. CT DOSE: 1482.20 mGy.cm COMPARISON: Comparison is made to CT abdomen pelvis 08/05/2022 FINDINGS: Lower chest: No acute abnormality. Liver: Hepatic steatosis is noted. Gallbladder and biliary tree: Cholelithiasis is seen without evidence of cholecystitis. No intra- or extrahepatic biliary ductal dilation. Pancreas: Unremarkable, no focal lesions. Spleen: Unremarkable. Adrenals: Unremarkable. Kidneys and ureters: A large cyst is seen. Nonobstructive stones are seen. Bilateral nephroureteral stents are seen. Bladder: Unremarkable. Reproductive organs: Prostatic calcifications are seen which may represent prior hemorrhage or granulomatous disease. Bowel: Partial colectomy changes are seen in the colon. The appendix is normal. Lymph nodes Retroperitoneal: Unremarkable. Pelvic: Unremarkable. Mesenteric: Unremarkable. Peritoneum: Normal. Vessels: Unremarkable. Abdominal wall: A fat-containing umbilical hernia is seen. Bones: Degenerative changes in the visualized spine. Posterior fixation hardware is seen spanning L5-S1. IMPRESSION: 1. No acute abnormalities are seen. There are nonobstructive stones bilaterally. No retroperitoneal hemorrhage is seen. Of note, CT is not sensitive to exclude pyelonephritis. 2. Additional findings as above. ACT 112: Negative or not required by law. Electronically signed by: Reinaldo Najera M.D. 09/28/2022 2:37 PM Code Status & VTE Plan Code Status Full code VTE Prophylaxis Plan VTE Prophylaxis will be ordered: Yes Supervising Physician Co-Signing Physician Notes I personally saw and examined the patient. I verified all hernandez points and agree with Addi Burnham PA-C with the following exceptions and/or additions: 62 year old male presents to the ER with bilateral flank pain and rigors. Ongoing pain since ureteral stents placed on 09/21. Nausea and vomiting now also present. O/E A&Ox3, Rigors, HS increased rate, regular rhythm, no murmurs, Chest CTAB, Abdo SNT, B/l CVA tenderness A/P Sepsis - source: pyelonephritis, lactate 0.9 (no need for aggressive fluid resuscitation), however still appears dry on exam, will start on LR for 2L @ 125ml/hr overnight. Ceftriaxone 2g IV - no prior known pseudomonas. Follow up urine and blood cultures. Bilateral ureteral stents in place without hydronephrosis reported (large cyst present on left kidney also present on July scan). PG Care Time/CCT Total # of Minutes Spent Total Time Spent with Patient: Total time spent is greater than 50% in coordination of care (as documented) at patient's floor/unit and/or counseling patient: Coding [place] [address] INT INP/OBS CARE 3/75MIN Patient Type Established Medical Decision Making High Complexity Diagnoses Sepsis A41.9 Pyelonephritis N12 PANDA (acute kidney injury) N17.9 S/P ureteral stent placement Z96.0 MAI (obstructive sleep apnea) G47.33
[2022-09-28] MEDS ORDERED: HYDROmorphone INJ 0.5 MG/0.5 ML SYR IV PRN (17:09)
[2022-09-28] MEDS ORDERED: PANTOprazole 40 MG in SYRINGE 0 ML IV ONE (17:15)
[2022-09-28] MEDS ORDERED: ACETAMINOPHEN 1,000 MG/100 ML VIAL IV PRN (17:26)
[2022-09-28] MEDS ORDERED: PLASMA-LYTE A 1,000 ML IV ONE (17:30)
[2022-09-28] MEDS ORDERED: PHENAZOPYRIDINE HCL 200 MG TAB PO PRN (19:16)
[2022-09-28] MEDS: TAMSULOSIN HCL 0.4 MG CAP PO SCH (20:32)
[2022-09-28] MEDS: LACTATED RINGER'S 1,000 ML IV SCH (22:36)
[2022-09-28] MEDS: HYDROmorphone INJ 1 MG/ML SYRINGE IV PRN (22:54)
[2022-09-29] MEDS ORDERED: ACETAMINOPHEN 1000 MG/100 ML IV IV ONE (02:17)
[2022-09-29] MEDS: HYDROmorphone INJ 1 MG/ML SYRINGE IV PRN ×4 (02:51→19:39)
[2022-09-29] MEDS: ACETAMINOPHEN 1,000 MG/100 ML VIAL IV SCH ×3 (02:55→19:39)
--- NOTE | 2022-09-29 06:08 | Urology Consultation ---
Date of Consultation September 29, 2022 Assessment & Plan (1) S/P ureteral stent placement: (2) Kidney stone: (3) Fever: Plan 62-year-old male with a history of nephrolithiasis and a left ureteral stricture. He is status post cystoscopy, bilateral ureteroscopy, left ureteral dilation with basket extraction of stone and stent placement, right laser destruction and stone extraction with right stent placement by Dr. Espinal on 09/21/2022. He presented to the hospital on 09/28/2022 with fevers. Patient is likely suffering from a UTI in the setting of recent stone surgery with bilateral ureteral stents currently in place Stents are in appropriate position. No need for urologic intervention. Recommend broad-spectrum antibiotics and following up cultures. Recommend a total of 10 to 14 days of antibiotics Trend labs Patient has an appointment on 10/04/[address] Espinal for bilateral stent removal. We will discuss with him whether this needs to be pushed back due to current hospitalization Urology to follow History of Present Illness Reason for Consultation: Fevers with bilateral ureteral stents in place Attending Physician: Mane Cowan History of Present Illness 62-year-old male with a history of nephrolithiasis and a left ureteral stricture. He is status post cystoscopy, bilateral ureteroscopy, left ureteral dilation with basket extraction of stone and stent placement, right laser destruction and stone extraction with right stent placement by Dr. Espinal on 09/21/2022. He presented to the emergency department on 09/28/2022 with flank pain and fevers. He has been intermittently febrile up to 39.4. Mildly tachycardic and hypertensive. Labs showed a leukocytosis of 13.7, hemoglobin of 15.6, creatinine of 1.69, and a urinalysis that was grossly positive. A previous urine culture from 09/07/2022 grew out a small amount of gram-positive cocci. A CT scan was independently reviewed by myself which shows bilateral ureteral stents in appropriate position. He was admitted to medicine and started on ceftriaxone. He still reports left lower quadrant and flank pain and intermittent fevers. Allergies Allergy/AdvReac Type Severity Reaction Status Date / Time morphine AdvReac Vomiting Verified 09/28/22 16:33 Home Medications Medication Instructions Recorded Confirmed Type acetaminophen 500 mg tablet 1,000 mg PO Q6H PRN Pain 08/05/22 09/28/22 History (Tylenol Extra Strength) phenazopyridine 200 mg tablet 200 mg PO Q8H PRN pain #10 tabs 08/17/22 09/28/22 Rx (Pyridium) docusate sodium 100 mg tablet 100 mg PO QAM 09/11/22 09/28/22 History (Stool Softener) tamsulosin 0.4 mg capsule 0.4 mg PO HS #30 caps 09/21/22 09/28/22 Rx oxycodone-acetaminophen 5 mg-325 1 tab PO Q8H PRN pain #7 tabs 09/26/22 09/28/22 Rx mg tablet (Percocet) ciprofloxacin HCl 500 mg tablet 0 mg PO BID 09/28/22 09/28/22 History Patient History Medical History DDD (degenerative disc disease) History of colon cancer 20+ years ago, treated surgically History of COVID-19 ?2021- sinus congestion > resolved Nephrolithiasis Surgical History History of bowel resection History of colonoscopy History [place]22 [place] History of tooth extraction Previous back surgery Family History Other No family history of adverse response to anesthesia No pertinent family history Social History Smoking Status: Never smoker Second Hand Exposure: No; Do You Dip or Chew Tobacco: No; Hx Alcohol Use: No Hx Substance Use: No Preferred Language: Nepalese Communication Ability: Effective Food Processor Required: No Beliefs That Will Affect Care: None Current Living Situation: Spouse Other Information That Helps Us Care for You: No Feels Safe at Home: Yes Safety Concerns: Feels Safe At This Time Assistive Devices: Denture - Upper Review of Systems Review of Systems: 14 point review of systems negative outside of what is listed above in HPI Physical Exam Physical Exam: General: Alert and oriented, no acute distress HEENT: Normocephalic, mucous membranes moist Pulmonary: Nonlabored respirations Abdomen: Nondistended Extremities: Moves all 4 spontaneously Neuro: No gross deficits Skin: Warm, dry, no rashes noted Results & Data Vital Signs (Past 12 Hours) Vital Signs Temp Pulse Pulse Resp BP Pulse Ox O2 Del Method 09/29/22 03:14 37.9 C H 100 H 20 141/74 H 92 Room Air 09/28/22 23:34 81 09/28/22 23:15 39.4 C H 107 H 22 165/82 H 93 Room Air 09/28/22 22:00 37.2 C 09/28/22 21:00 36.7 C 09/28/22 18:59 78 09/28/22 18:45 37.6 C H 86 20 169/98 H 93 Room Air PG Care Time/CCT Total # of Minutes Spent Total Time Spent with Patient: Total time spent is greater than 50% in coordination of care (as documented) at patient's floor/unit and/or counseling patient: Coding Level of Care Code 58722 IN/OBS CONSULT LVL 3,45M Diagnoses S/P ureteral stent placement Z96.0 Kidney stone N20.0 Fever R50.9
[2022-09-29] MEDS: LACTATED RINGER'S 1,000 ML IV SCH (06:22)
[2022-09-29] MEDS ORDERED: Nursing to Pharmacy Communication SCH ×2 (07:15→16:45)
--- NOTE | 2022-09-29 08:33 | Electrocardiogram Report ---
Test Reason : Blood Pressure : / mmHG Vent. Rate : 074 BPM Atrial Rate : 074 BPM P-R Int : 164 ms QRS Dur : 090 ms QT Int : 390 ms P-R-T Axes : 042 -03 034 degrees QTc Int : 432 ms Normal sinus rhythm Normal ECG When compared with ECG of 11-AUG-2022 10:55, No significant change was found Confirmed by Jimbo Schmidt ([id number]) on 09/29/2022 8:33:15 AM Referred By: REFERRED SELF Confirmed By:Jimbo Schmidt
[2022-09-29 08:45] LABS: Basophils # (auto) 0.04 K/uL (0-0.2); Basophils % (auto) 0.3 %; Eosinophils # (auto) 0.01 K/uL (0-0.50); Eosinophils % (auto) 0.1 %; Hematocrit (blood only) 42.6 % (42.0-52.0); Hemoglobin 14.1 g/dl (14.0-18.0); Immature Granulocytes % (auto) 0.7 %; Lymphocytes # (auto) 1.34 K/uL (1.2-3.4); Lymphocytes % (auto) 8.8 %; Mean Corpuscular Hemoglobin 28.9 pg (25.0-34.0); Mean Corpuscular Hgb Conc 33.1 g/dL (32.0-36.0); Mean Corpuscular Volume 87.3 fL (80.0-100.0); Mean Platelet Volume 11.4 fL (9.4-12.4); Monocytes % (auto) 11.2 %; Neutrophils # (auto) 12.01 K/uL (1.40-6.50); Neutrophils % (auto) 78.9 %; Platelet Count 155 K/uL (130-400); RDW Coefficient of Variation 13.7 % (11.5-14.5); RDW Standard Deviation 44.1 fL (36.4-46.3); Red Blood Count 4.88 M/uL (4.70-6.10)
[2022-09-29 09:00] LABS: Albumin Globulin Ratio 1.1 (0.9-2); Albumin Level 3.7 gm/dl (3.4-5.0); BUN Creatinine Ratio 13.3 (10-20); Bilirubin,Total 1.1 mg/dl (0.2-1.0); Calcium 8.8 mg/dl (8.6-10.3); Creatinine Clr Calc Pharmacy 76.3 ml/min; Est GFR (African American) 63.9 ml/min; Est GFR (Non-African American) 55.1 ml/min; Globulin 3.4 gm/dl (2.5-4.0); Potassium 4.3 mmol/L (3.5-5.1); Total Protein 7.1 gm/dl (6.0-8.3)
[2022-09-29] MEDS: POLYETHYLENE (MIRALAX) 17 GM PACK PO SCH (09:31)
[2022-09-29] MEDS: HYDROmorphone INJ 0.5 MG/0.5 ML SYR IV PRN (10:28)
[2022-09-29] MEDS: PANTOprazole 40 MG in SYRINGE 0 ML IV SCH (11:22)
[2022-09-29] MEDS ORDERED: cefTRIAXone SODIUM 2,000 MG in DEXTROSE 5% AD-VAN 50 ML IV SCH (13:00)
[2022-09-29] MEDS: cefTRIAXone SODIUM 2,000 MG in DEXTROSE 5% 50 ML IV SCH (13:05)
[2022-09-29] MEDS: SODIUM CHLORIDE 0.9% 1000ML 1,000 ML IV SCH (17:19)
[2022-09-29] MEDS: TAMSULOSIN HCL 0.4 MG CAP PO SCH (19:39)
--- NOTE | 2022-09-29 23:15 | Hospitalist Progress Note ---
Date of Service September 29, 2022 Assessment & Plan (1) Sepsis: Plan: -Admit to med/tele -Currently stable -Noted to be febrile with a leukocytosis, evidence of acute UTI and BL CVA tenderness on admission WBC has worsened, but clinical improvement usually occurs earlier than labs. nticipate it could take 48 hours until he improves Fever curve does appear slightly better. If no improvement by 6/3 will consider US of his kidneys to assess for abscess. -continue antibiotics. -Monitor intake/output q6h -Urology consult placed -Pain control with prn IV tylenol for pain (1-3,fever,headache), and IV diluadid q4h prn pain 4+ (2) Pyelonephritis: Plan: -See sepsis -Tailor abx to blood and urine cultures (3) PANDA (acute kidney injury): Plan: -Cr today at 1.6, baseline is near 2 -Likely multifactorial including acute pyelonephritis and dehydration -No signs of obstruction on CT of the abd/pelvis today -Continue IV fluids overnight -Monitor intake/output -Avoid nephrotoxic agents -Monitor am renal function and electrolytes (4) S/P ureteral stent placement: Plan: -Urology consulted -Monitor Intake and output (5) MAI (obstructive sleep apnea): Plan: -Non-compliant with HS CPAP -May desaturate while sleeping Admission and Anticipated Discharge Date Admission Date: September 28, 2022 Subjective Patient reports having intermittent rigors and chills throughout the day. Review of Systems Review of Systems: All systems reviewed & are unremarkable except as noted in HPI & below Physical Exam Physical Exam: General: In no acute distress, stated age, well-nourished, good hygiene HEENT: Normocephalic, atraumatic Chest/Pulm: No respiratory distress, symmetrical chest expansion, clear breath sounds throughout Cardiac: RRR, no murmurs noted Abdomen: Negative for ascites and bruising, normoactive bowel sounds, soft, mildly tender to palpation in the suprapubic region and LLQ Musculoskeletal: Symmetrical and without signs of acute trauma, upper and lower extremities with full ROM, no atrophy, spasticity, or flaccidity Extremities: Radial, dorsalis pedis, and posterior tibial pulses are intact and symmetrical, no edema noted in the BL LE's Skin: Warm, dry, no rashes , lesions, or scars noted Neuro: Alert and oriented to person, place, month, year, and president, no focal defects, no tremors noted Psych: No acute distress, calm and cooperative during the exam Results & Data Results & Data Vital Signs (Past 12 Hours) Vital Signs Temp Pulse Pulse Resp BP Pulse Ox O2 Del Method 09/29/22 22:50 37.3 C 64 18 158/80 H 97 Room Air 09/29/22 19:21 37.3 C 79 18 169/87 H 95 Room Air 09/29/22 15:35 65 09/29/22 15:11 36.7 C 64 16 151/78 H 97 Room Air 09/29/22 11:49 37.9 C H 93 H 16 160/81 H 94 Room Air PG Care Time/CCT Total # of Minutes Spent Total Time Spent with Patient: Total time spent is greater than 50% in coordination of care (as documented) at patient's floor/unit and/or counseling patient: Coding Level of Care Code 72133 SUB INP/OBS CARE 3/50MIN Diagnoses Sepsis A41.9 Pyelonephritis N12 PANDA (acute kidney injury) N17.9 S/P ureteral stent placement Z96.0 MAI (obstructive sleep apnea) G47.33
[2022-09-30 00:12] LABS: BUN Creatinine Ratio 14.3 (10-20); Calcium 7.9 mg/dl (8.6-10.3); Creatinine Clr Calc Pharmacy 91.9 ml/min; Potassium 3.8 mmol/L (3.5-5.1)
[2022-09-30] MEDS: HYDROmorphone INJ 1 MG/ML SYRINGE IV PRN ×3 (00:27→22:27)
[2022-09-30] MEDS: ACETAMINOPHEN 1,000 MG/100 ML VIAL IV SCH ×3 (03:30→20:46)
[2022-09-30] MEDS ORDERED: ONDANSETRON INJ 2 MG/ML 2 ML VIAL IV PRN (04:46)
[2022-09-30] MEDS: SODIUM CHLORIDE 0.9% 1000ML 1,000 ML IV SCH (05:10)
[2022-09-30 06:15] LABS: Basophils # (auto) 0.03 K/uL (0-0.2); Basophils % (auto) 0.3 %; Eosinophils # (auto) 0.15 K/uL (0-0.50); Eosinophils % (auto) 1.5 %; Hematocrit (blood only) 35.4 % (42.0-52.0); Hemoglobin 11.9 g/dl (14.0-18.0); Immature Granulocytes # (auto) 0.04 K/uL (0.01-0.20); Immature Granulocytes % (auto) 0.4 %; Lymphocytes # (auto) 0.99 K/uL (1.2-3.4); Mean Corpuscular Hemoglobin 28.7 pg (25.0-34.0); Mean Corpuscular Hgb Conc 33.6 g/dL (32.0-36.0); Mean Corpuscular Volume 85.5 fL (80.0-100.0); Mean Platelet Volume 11.4 fL (9.4-12.4); Monocytes # (auto) 1.33 K/uL (0.11-0.59); Monocytes % (auto) 13.4 %; Neutrophils # (auto) 7.35 K/uL (1.40-6.50); Neutrophils % (auto) 74.4 %; Platelet Count 149 K/uL (130-400); RDW Coefficient of Variation 13.4 % (11.5-14.5); RDW Standard Deviation 41.9 fL (36.4-46.3); Red Blood Count 4.14 M/uL (4.70-6.10); White Blood Count 9.89 K/ul (4.8-10.8)
[2022-09-30 06:29] LABS: Albumin Level 3.1 gm/dl (3.4-5.0); BUN Creatinine Ratio 16.8 (10-20); Bilirubin,Total 0.7 mg/dl (0.2-1.0); C Reactive Protein 13.94 mg/dl (0-0.5); Calcium 8.5 mg/dl (8.6-10.3); Creatinine Clr Calc Pharmacy 102.9 ml/min; Est GFR (African American) 90.7 ml/min; Est GFR (Non-African American) 78.2 ml/min; Potassium 3.8 mmol/L (3.5-5.1); Total Protein 6.1 gm/dl (6.0-8.3)
[2022-09-30] MEDS: POLYETHYLENE (MIRALAX) 17 GM PACK PO SCH (08:36)
--- NOTE | 2022-09-30 09:05 | Urology Progress Note ---
Date of Service September 30, 2022 Assessment & Plan (1) Pyelonephritis: (2) Fever: (3) S/P ureteral stent placement: Plan He is currently feeling better on antibiotics. Stent should remain in place until office follow-up on 10/04/2022. Since cultures are negative, would be reasonable to try de-escalating antibiotics to an oral option such as Bactrim. If he remains afebrile with this, would be reasonable to discharge home. Urology will follow along. Admission and Anticipated Discharge Date Admission Date: September 28, 2022 Subjective Feeling well this morning, denies any fevers or chills Still having occasional discomfort from the stents, but urinating well WBC decreased to 9.89, creatinine remains stable (1.01) No growth on blood and urine cultures at 24 hours, he remains on ceftriaxone Physical Exam Physical Exam: Well-appearing, NAD Results & Data Vital Signs (Past 12 Hours) Vital Signs Temp Pulse Pulse Resp BP Pulse Ox O2 Del Method 09/30/22 07:56 36.6 C 60 18 154/79 H 95 Room Air 09/30/22 07:20 57 L 09/30/22 03:22 37.0 C 72 20 164/79 H 97 Room Air 09/30/22 00:01 59 L 09/29/22 22:50 37.3 C 64 18 158/80 H 97 Room Air PG Care Time/CCT Total # of Minutes Spent Total Time Spent with Patient: Total time spent is greater than 50% in coordination of care (as documented) at patient's floor/unit and/or counseling patient: Coding Level of Care Code 00595 SUB INP/OBS CARE 05/24MIN Diagnoses Pyelonephritis N12 Fever R50.9 S/P ureteral stent placement Z96.0
[2022-09-30] MEDS: PANTOprazole 40 MG in SYRINGE 0 ML IV SCH (11:37)
[2022-09-30] MEDS: cefTRIAXone SODIUM 2,000 MG in DEXTROSE 5% 50 ML IV SCH (13:06)
[2022-09-30] MEDS: HYDROmorphone INJ 0.5 MG/0.5 ML SYR IV PRN (15:33)
[2022-09-30] MEDS: TAMSULOSIN HCL 0.4 MG CAP PO SCH (20:48)
--- NOTE | 2022-09-30 22:40 | Hospitalist Progress Note ---
Date of Service September 30, 2022 Assessment & Plan (1) Sepsis: Plan: -Admit to med/tele -Currently stable -Noted to be febrile with a leukocytosis, evidence of acute UTI and BL CVA tenderness on admission WBC has worsened, but clinical improvement usually occurs earlier than labs. nticipate it could take 48 hours until he improves Fever curve does appear slightly better. If no improvement by 6/3 will consider US of his kidneys to assess for abscess. -continue antibiotics. -Monitor intake/output q6h -Urology consult placed -Pain control with prn IV tylenol for pain (1-3,fever,headache), and IV diluadid q4h prn pain 4+ cultures appear to be negative so will need to discharge patient on empiric antibiotics. (2) Pyelonephritis: Plan: -See sepsis Sepsis due to acute pyelonephritis following a procedure, a complication of care \ -Tailor abx to blood and urine cultures (3) PANDA (acute kidney injury): Plan: -Cr today at 1.6, baseline is near 2 -Likely multifactorial including acute pyelonephritis and dehydration -No signs of obstruction on CT of the abd/pelvis today -Continue IV fluids overnight -Monitor intake/output -Avoid nephrotoxic agents -Monitor am renal function and electrolytes (4) S/P ureteral stent placement: Plan: -Urology consulted -Monitor Intake and output (5) MAI (obstructive sleep apnea): Plan: -Non-compliant with HS CPAP -May desaturate while sleeping Admission and Anticipated Discharge Date Admission Date: September 28, 2022 Subjective Patient reports feeling much better today. Review of Systems Review of Systems: All systems reviewed & are unremarkable except as noted in HPI & below Physical Exam Physical Exam: General: In no acute distress, stated age, well-nourished, good hygiene HEENT: Normocephalic, atraumatic Chest/Pulm: No respiratory distress, symmetrical chest expansion, clear breath sounds throughout Cardiac: RRR, no murmurs noted Abdomen: Negative for ascites and bruising, normoactive bowel sounds, soft, nontender Musculoskeletal: CVA tenderness in negative (patient did have CVA tenderness the night prior) Extremities: Radial, dorsalis pedis, and posterior tibial pulses are intact and symmetrical, no edema noted in the BL LE's Skin: Warm, dry, no rashes , lesions, or scars noted Neuro: Alert and oriented to person, place, month, year, and president, no focal defects, no tremors noted Psych: No acute distress, calm and cooperative during the exam Results & Data Results & Data Vital Signs (Past 12 Hours) Vital Signs Temp Pulse Pulse Pulse Resp BP Pulse Ox 09/30/22 19:00 37.0 C 70 18 151/87 H 95 09/30/22 16:19 64 09/30/22 15:36 37.0 C 64 18 139/78 96 09/30/22 11:41 36.7 C 58 L 18 152/78 H 96 O2 Del Method 09/30/22 19:00 Room Air 09/30/22 16:19 09/30/22 15:36 Room Air 09/30/22 11:41 Room Air PG Care Time/CCT Total # of Minutes Spent Total Time Spent with Patient: Total time spent is greater than 50% in coordination of care (as documented) at patient's floor/unit and/or counseling patient: Coding Level of Care Code 36823 SUB INP/OBS CARE 2/35MIN Diagnoses Sepsis A41.9 Pyelonephritis N12 PANDA (acute kidney injury) N17.9 S/P ureteral stent placement Z96.0 MAI (obstructive sleep apnea) G47.33
[2022-10-01] MEDS: ACETAMINOPHEN 1,000 MG/100 ML VIAL IV SCH ×2 (03:47→11:20)
[2022-10-01 07:17] LABS: Basophils # (auto) 0.04 K/uL (0-0.2); Basophils % (auto) 0.5 %; Eosinophils # (auto) 0.27 K/uL (0-0.50); Eosinophils % (auto) 3.5 %; Hematocrit (blood only) 36.7 % (42.0-52.0); Hemoglobin 12.2 g/dl (14.0-18.0); Immature Granulocytes # (auto) 0.03 K/uL (0.01-0.20); Immature Granulocytes % (auto) 0.4 %; Lymphocytes # (auto) 1.15 K/uL (1.2-3.4); Lymphocytes % (auto) 14.8 %; Mean Corpuscular Hemoglobin 28.8 pg (25.0-34.0); Mean Corpuscular Hgb Conc 33.2 g/dL (32.0-36.0); Mean Corpuscular Volume 86.6 fL (80.0-100.0); Mean Platelet Volume 11.7 fL (9.4-12.4); Monocytes # (auto) 0.69 K/uL (0.11-0.59); Monocytes % (auto) 8.9 %; Neutrophils # (auto) 5.61 K/uL (1.40-6.50); Neutrophils % (auto) 71.9 %; Platelet Count 172 K/uL (130-400); RDW Coefficient of Variation 13.6 % (11.5-14.5); RDW Standard Deviation 42.4 fL (36.4-46.3); Red Blood Count 4.24 M/uL (4.70-6.10); White Blood Count 7.79 K/ul (4.8-10.8)
[2022-10-01 07:40] LABS: Albumin Level 3.1 gm/dl (3.4-5.0); BUN Creatinine Ratio 16.8 (10-20); Bilirubin,Total 0.4 mg/dl (0.2-1.0); C Reactive Protein 8.06 mg/dl (0-0.5); Calcium 8.3 mg/dl (8.6-10.3); Creatinine Clr Calc Pharmacy 102.7 ml/min; Est GFR (African American) 90.7 ml/min; Est GFR (Non-African American) 78.2 ml/min; Potassium 3.7 mmol/L (3.5-5.1); Total Protein 6.1 gm/dl (6.0-8.3)
--- NOTE | 2022-10-01 08:27 | Urology Progress Note ---
Date of Service October 01, 2022 Assessment & Plan (1) Pyelonephritis: (2) Fever: (3) S/P ureteral stent placement: Plan He is currently doing well, afebrile with no leukocytosis. In the absence of definitive culture data, would recommend empirically switching to oral antibiotics such as Bactrim. I think he is appropriate for discharge home on a week of oral antibiotics. He can follow-up in the urology office as scheduled. Admission and Anticipated Discharge Date Admission Date: September 28, 2022 Subjective Feeling well this morning, no fevers or chills Tolerating a diet Blood and urine cultures negative, no leukocytosis, creatinine at baseline Physical Exam Physical Exam: Well-appearing, NAD Results & Data Vital Signs (Past 12 Hours) Vital Signs Temp Pulse Pulse Resp BP Pulse Ox O2 Del Method 10/01/22 08:09 36.7 C 61 18 159/84 H 96 Room Air 10/01/22 07:04 56 L 10/01/22 04:00 36.8 C 65 18 143/78 H 95 Room Air 10/01/22 01:56 61 09/30/22 23:00 36.8 C 60 18 146/77 H 96 Room Air PG Care Time/CCT Total # of Minutes Spent Total Time Spent with Patient: Total time spent is greater than 50% in coordination of care (as documented) at patient's floor/unit and/or counseling patient: Coding Level of Care Code 75121 SUB INP/OBS CARE 25MIN Diagnoses Pyelonephritis N12 Fever R50.9 S/P ureteral stent placement Z96.0
[2022-10-01] MEDS: HYDROmorphone INJ 1 MG/ML SYRINGE IV PRN (08:54)
[2022-10-01] MEDS: POLYETHYLENE (MIRALAX) 17 GM PACK PO SCH (08:55)
[2022-10-01] MEDS: PANTOprazole 40 MG in SYRINGE 0 ML IV SCH (11:19)
[2022-10-01] MEDS ORDERED: CEFDINIR 300 MG CAP PO STA (11:30)
--- NOTE | 2022-10-10 13:57 | Discharge Summary ---
Date of Service October 01, 2022 Admission HPI Per Admitting Provider Carl is a 62 year old male with a PMH significant for multiple previous nephrolithiases S/P BL ureteral stent replacement with Dr. Espinal on 09/21/22, and MAI not compliant with HS CPAP who presented to the [facility] ED on 09/28/22 with flank pain and fevers. In the ED the patient was noted to be febrile at 38.5 but otherwise stable. Labs were significant for a leukocytosis of 13 with left shift of 11, cr of 1.69 (baseline is 1.0), total bili of 1.3, and UA concerning for infection. CT of the abd/pelvis wo con was read as "1. No acute abnormalities are seen. There are nonobstructive stones bilaterally. No retroperitoneal hemorrhage is seen. Of note, CT is not sensitive to exclude pyelonephritis.2. Additional findings as above.". Prior to admission the patient was given 2L NSS, a dose of ceftriaxone, 1gm PO tylenol, and 0.5 mg IV Dilaudid. At the time of the exam the patient was lying in bed in no acute distress with his sitting bedside. He states that he has been having ongoing BL flank pain with L>R, right groin pain with urination, and bladder pain since his ureteral stent replacements on 09/21. He states that he called Dr. Espinal' office on yesterday due to the symptoms who prescribed him Ciprofloxacin, Pyridium, and Percocet. He picked up the medications yesterday but was unable to start the Cipro due to multiple episodes of nausea and vomiting yesterday. He stats he felt febrile and had chills yesterday. At the time of my exam he states he feels slightly improved compared to arrival. He is a full code and would want his to make medical decisions for him if he could not make them himself. Please refer to Dr. Fuller's attestation for any changes to the treatment plan. Principal Diagnosis sepsis Discharge Exam General: In no acute distress, stated age, well-nourished, good hygiene HEENT: Normocephalic, atraumatic Chest/Pulm: No respiratory distress, symmetrical chest expansion, clear breath sounds throughout Cardiac: RRR, no murmurs noted Abdomen: Negative for ascites and bruising, normoactive bowel sounds, soft, nontender Musculoskeletal: CVA tenderness is negative (patient did have CVA tenderness two nights prior) Extremities: Radial, dorsalis pedis, and posterior tibial pulses are intact and symmetrical, no edema noted in the BL LE's Skin: Warm, dry, no rashes , lesions, or scars noted Neuro: Alert and oriented to person, place, month, year, and president, no focal defects, no tremors noted Psych: No acute distress, calm and cooperative during the exam Discharge Data Allergies Allergy/AdvReac Type Severity Reaction Status Date / Time morphine AdvReac Vomiting Verified 09/28/22 16:33 Consultations 09/28/22 17:16 Consult Urology Routine Ordered Studies 09/28/22 12:50 CT Abd and Pelvis [CT abd pelvis wo con] Stat Hospital Course (1) Sepsis: -Admit to med/tele -Currently stable -Noted to be febrile with a leukocytosis, evidence of acute UTI and BL CVA tenderness on admission WBC has worsened, but clinical improvement usually occurs earlier than labs. nticipate it could take 48 hours until he improves Fever curve does appear slightly better. If no improvement by 09/30 will consider US of his kidneys to assess for abscess. -continue antibiotics. -Monitor intake/output q6h -Urology consult placed -Pain was controlled with prn IV tylenol for pain (1-3,fever,headache), and IV diluadid q4h prn pain 4+ cultures appear to be negative so will need to discharge patient on empiric antibiotics. Patient remains afebrile, patient will be discharged with adequate followup as noted below (2) Pyelonephritis: -See sepsis Sepsis due to acute pyelonephritis following a procedure, a complication of care \\ -Tailor abx to blood and urine cultures. -Patient improved with above antibiotics (3) PANDA (acute kidney injury): -Cr today at 1.6, baseline is near 2 -Likely multifactorial including acute pyelonephritis and dehydration -No signs of obstruction on CT of the abd/pelvis today -Continue IV fluids overnight -Monitor intake/output -Avoid nephrotoxic agents (4) S/P ureteral stent placement: -Urology consulted -Monitor Intake and output (5) MAI (obstructive sleep apnea): -Non-compliant with HS CPAP -May desaturate while sleeping Total Time Total Time Spent Total Time Spent (In Minutes): 32 Discharge Plan Discharge Items Patient Disposition: Home - Self-Care Reason For Visit: FLANK PAIN, FEVERS Discharge Diagnosis: pyelonephritis Activity: Resume your previous activity Non-emergency contact: Primary Care Provider Call non-emergency contact if: you have any medication questions Follow-up/Referrals: PCP,NO [Primary Care Provider] - Diet: Regular Addtl Attending Provider Instructions: Good afternoon Mr. Agrawal, It was a pleasure taking care of you. Thankfully, you continued to improve and your labs and vital signs have normalized. Here are some kind recommendations: 1. Complete the prescribed course of antibiotics: It is very important to finish the entire course of antibiotics, even if you are feeling better. This helps eliminate the infection fully and reduces the risk of recurrence. 2. Hydration: Encourage you to maintain good hydration by drinking plenty of water. Staying hydrated can help flush out toxins and support kidney function. 3. Rest and recovery: Adequate sleep and reduced physical exertion can help in the recovery process. 4. Follow-up appointments: Please followup with your PCP in 1-2 weeks and keep your Urology appointment. 5. Dietary considerations: Please follow a balanced diet that includes foods beneficial for kidney health. This may include limiting salt and processed foods, and incorporating fruits, vegetables, and lean proteins. 6. Avoiding urinary tract irritants: Advise to avoid substances that can irritat e the urinary tract, such as caffeine, alcohol, and spicy foods. This can help prevent further complications and aid in recovery. 7. Recognize warning signs:Please be aware of warning signs of a recurring kidney infection, such as persistent pain, frequent urination, or changes in urine color or smell. If they experience any concerning symptoms, they should seek medical attention promptly. Pending Studies at Discharge: No Stand-Alone Forms: My [facility] [employer], Smoking Cessation Medications and DC Order Prescriptions: New cefdinir 300 mg capsule 300 mg PO BID 10 Days Qty: 19 0RF Rx Instructions: first dose tonight Continued oxycodone-acetaminophen [Percocet] 5-325 mg tablet 1 tab PO Q8H PRN (Reason: pain) Qty: 7 0RF acetaminophen [Tylenol Extra Strength] 500 mg Tablet 1,000 mg PO Q6H PRN (Reason: Pain) phenazopyridine [Pyridium] 200 mg tablet 200 mg PO Q8H PRN (Reason: pain) Qty: 10 0RF docusate sodium [Stool Softener] 100 mg Tablet 100 mg PO QAM tamsulosin 0.4 mg capsule 0.4 mg PO HS Qty: 30 0RF Discontinued ciprofloxacin HCl 500 mg tablet 0 mg PO BID Rx Instructions: 500mg twice daily: Picked up on 09/27/22 but patient hasn't started medication yet as of 09/28/22 Discharge Orders: Discharge Order (Routine); Ordered 10/01/22 Ordered By: Mane Cowan Admission Data Admit Date/Time: 09/28/22 16:53 Attending Provider: Mane Cowan Admit Provider: Julio Fuller Primary Care Provider: PCP,NO Other Providers: Dashawn Lopez Other Interventions: Discharge Summary Assessment (RN) Last Done: 10/01/22 12:33 Coding Level of Care Code 15226 INP/OBS DISCH >30 MIN Diagnoses Sepsis A41.9 Pyelonephritis N12 PANDA (acute kidney injury) N17.9 S/P ureteral stent placement Z96.0 MAI (obstructive sleep apnea) G47.33
== END 2022-10-01 13:00 | disposition home or self-care (01) | DRG 863 ==
LOC: ED 11:50 → 2N 16:53 → SUATTDRO 16:53 → 2N 17:56